=== PATIENT | female | born 1965 | race African-American/Black ===

== ENCOUNTER 2017-08-21 13:12 | Inpatient (IN) ==
--- NOTE | 2017-08-21 13:32 | Emergency Department Report ---
Lower Extremity Injury HPI - General Chief Complaint: Extremity Injury, Lower Stated Complaint: Fall Time Seen by Provider: 08/21/17 13:32 Source: patient Mode of arrival: wheelchair Limitations: no limitations - History of Present Illness HPI Narrative: Patient is a 52-year-old female, presents to the emergency room for evaluation of knee pain. Patient lived in [place] up until yesterday, was moved by family into the [facility]. Patient is wheelchair-bound, was moving from wheelchair to couch, slipped landing on knee. This happened yesterday. Patient having significant knee pain, EMS was called patient was brought to the ER for evaluation. MD complaint: knee injury Injury: Right: knee Type of Injury: blunt Place: home Context: fall - Related Data Home Medications Medication Instructions Recorded Confirmed Ammonium Lactate [Lac-Hydrin Five] 113 gm TP DAILY 08/21/17 08/21/17 Ascorbic Acid [Vitamin C] 1,000 mg PO DAILY 08/21/17 08/21/17 Aspirin [Aspirin EC] 81 mg PO DAILY 08/21/17 08/21/17 Atorvastatin [Lipitor] 0.5 tab PO HS 08/21/17 08/21/17 Brimonidine/Timolol Eye Drops 1 drop EACH EYE Q12HR 08/21/17 08/21/17 [Combigan Eye Drops] Brinzolamide Eye Drops [Azopt] 1 drop BID 08/21/17 08/21/17 Cholecalciferol (Vitamin D3) 2 cap PO DAILY 08/21/17 08/21/17 [Vitamin D3] Dimethicone/Zinc Oxide [Bryanna See Protocol TID 08/21/17 08/21/17 Protect Cream] Famciclovir 250 mg PO Q12HR 08/21/17 08/21/17 Famotidine [Pepcid] 1 tab PO BID 08/21/17 08/21/17 Folic Acid [Folate] 1 tab PO DAILY 08/21/17 08/21/17 Gabapentin [Neurontin] 100 mg PO DAILY 08/21/17 08/21/17 Insulin Aspart [Novolog Flexpen] See Protocol SQ TID 08/21/17 08/21/17 Insulin Glargine,Hum.rec.anlog 16 unit SQ QAM 08/21/17 08/21/17 [Lantus Solostar] Levothyroxine Sodium 25 mcg PO DAILY 08/21/17 08/21/17 Metoprolol Succinate (XL) [Toprol 12.5 mg PO BID 08/21/17 08/21/17 Xl] Polyethylene Glycol [Polyox 17 gm PO BID 08/21/17 08/21/17 Wsr-301] Voriconazole [Vfend] 250 mg PO Q12HR 08/21/17 08/21/17 prednisoLONE acetate [Pred Forte] 1 ml OP DAILY 08/21/17 08/21/17 Allergies Allergy/AdvReac Type Severity Reaction Status Date / Time acetaminophen [From Percocet] Allergy Verified 08/21/17 13:35 Fish Containing Products Allergy Verified 08/21/17 13:35 hydrocodone [From Vicodin] Allergy Verified 08/21/17 13:35 metformin Allergy Verified 08/21/17 13:36 morphine Allergy Verified 08/21/17 13:35 nut - unspecified Allergy Verified 08/21/17 13:35 oxycodone [From Percocet] Allergy Verified 08/21/17 13:35 shellfish derived Allergy Verified 08/21/17 13:35 Review of Systems Constitutional: Denies: fever, chills, weakness ENT: Denies: throat pain Cardiovascular: Denies: chest pain, palpitations Respiratory: Denies: cough, dyspnea, wheezes Gastrointestinal: Denies: abdominal pain, nausea, vomiting Genitourinary: Denies: urgency, dysuria, frequency Musculoskeletal: Reports: as per HPI Neurological: Denies: headache, weakness Psychiatric: Denies: anxiety Endocrine: Denies: fatigue Hematological/Lymphatic: Denies: easy bleeding PFSH Patient Stated Medical History Transient Ischemic Attacks ( Yes: x3 TIA) Cataracts Yes: bilateral eyes Hypertension Yes Other Respiratory Yes: Pt unable to state problem Other GI Yes: chronic constipation Hx Incontinence Yes Depression Yes Other Reproductive Yes: no menstural cycle after chemo - Social History Substance use type: does not use Alcohol intake frequency: does not drink Physical Exam - General General appearance: alert, in no apparent distress - ENT ENT exam: Present: normal oropharynx, mucous membranes moist, TM's normal bilaterally - Respiratory Respiratory exam: Present: normal lung sounds bilaterally - Cardiovascular Cardiovascular exam: Present: normal rhythm, normal heart sounds - Abdominal Exam Abdominal exam: Present: soft, normal bowel sounds. Absent: distention, tenderness - Expanded Lower Extremity Exam right Hip/Pelvis exam: Present: full ROM, tenderness. Absent: swelling, ecchymosis, deformity, crepitus Upper leg exam: Absent: swelling Knee exam: Present: tenderness, knee extension intact. Absent: swelling, abrasion, laceration, ecchymosis, deformity, crepitus, dislocation, pain with valgus, laxity with valgus, pain with varus, laxity with varus Lower leg exam: Present: full ROM. Absent: tenderness Ankle exam: Present: full ROM. Absent: tenderness Neurovascular/Tendon exam: Present: normal capillary refill. Absent: pulse deficit, motor deficit, sensory deficit - Skin Skin exam: Present: warm, dry - Neurological Exam Neurological exam: Present: alert, oriented X3 - Psychiatric Psychiatric exam: Present: normal affect, normal mood Course Vital Signs Temperature 97.5 F 08/21/17 13:20 Pulse Rate 114 H 08/21/17 13:20 Respiratory Rate 16 08/21/17 13:20 Blood Pressure 113/78 08/21/17 13:20 Pulse Oximetry 99 08/21/17 13:20 Temperature 97.5 F 08/21/17 13:20 Pulse Rate 99 08/21/17 14:47 Respiratory Rate 16 08/21/17 14:47 Blood Pressure 115/76 08/21/17 14:47 Pulse Oximetry 99 08/21/17 14:47 Extremity Injury, Lower - MDM Narrative Medical decision making narrative: Atrial fibrillation with no acute fractures or dislocations of the femur or the knee. Family states that they moved her here, however unable to take care of the patient at her house they're requesting placement in a facility. - Differential Diagnosis Likely: acute internal derangement of knee - Radiology Data Attestation: I reviewed the patient's radiology results. Right knee: No acute fractures or dislocations noted Right femur: No acute fractures or dislocations noted Disposition Prescriptions: No Action Brinzolamide Eye Drops [Azopt] 1 drop BID Atorvastatin [Lipitor] 0.5 tab PO HS Aspirin [Aspirin EC] 81 mg PO DAILY Ammonium Lactate [Lac-Hydrin Five] 113 gm TP DAILY Brimonidine/Timolol Eye Drops [Combigan Eye Drops] 1 drop EACH EYE Q12HR Cholecalciferol (Vitamin D3) [Vitamin D3] 2 cap PO DAILY prednisoLONE acetate [Pred Forte] 1 ml OP DAILY Ascorbic Acid [Vitamin C] 1,000 mg PO DAILY Insulin Glargine,Hum.rec.anlog [Lantus Solostar] 16 unit SQ QAM Polyethylene Glycol [Polyox Wsr-301] 17 gm PO BID Metoprolol Succinate (XL) [Toprol Xl] 12.5 mg PO BID Levothyroxine Sodium 25 mcg PO DAILY Gabapentin [Neurontin] 100 mg PO DAILY Folic Acid [Folate] 1 tab PO DAILY Famotidine [Pepcid] 1 tab PO BID Voriconazole [Vfend] 250 mg PO Q12HR Dimethicone/Zinc Oxide [Bryanna Protect Cream] See Protocol TID Insulin Aspart [Novolog Flexpen] See Protocol SQ TID Famciclovir 250 mg PO Q12HR
[2017-08-21] MEDS ORDERED: IBUPROFEN 600 MG TABLET PO ONE (13:38)
--- NOTE | 2017-08-21 14:27 | XRay Report ---
EXAM: XR knee RT 3V COMPARISON: None available. HISTORY: fall right knee pain . FINDINGS: There is no evidence for acute fracture, subluxation, or dislocation. A significant joint effusion is not appreciated. The articulating surfaces are smooth. There is mild medial compartment narrowing. Some sclerosis of the medial and lateral femoral condyle and tibial plateau is noted which may be related to osteoporosis. Osteonecrosis is also also a consideration but seems less likely. IMPRESSION: No evidence for acute fracture identified. LOCATION OF DICTATION: [facility] [place] .
--- NOTE | 2017-08-21 14:28 | XRay Report ---
EXAM: XR femur RT 2V COMPARISON: None available. HISTORY: fall, right femur pain . FINDINGS: There is no evidence for acute fracture, subluxation, or dislocation. There is mild axial migration of the right hip with joint space narrowing and mild subchondral sclerosis and spur formation. The distal femur is intact. The distal femur is intact. There is mild medial compartment narrowing of the knee. IMPRESSION: Mild degenerative changes without evidence for fracture identified. [place] [facility] [place]
--- NOTE | 2017-08-21 18:15 | IRU History & Physical Report ---
HPI IRU Date: Date: 08/21/17 Time: 1810 Chief complaint: I fell HPI: Ms. Isaac is a pleasant 52-year-old female referred by Dr. Arias Echeverria, Emergency Department at [facility]. The patient does not currently have a primary care physician. History was obtained predominantly from the patient directly and also from her cousin. The patient had lived in [place]. She underwent a colonoscopy in April 2016 demonstrating some polyps. Apparently no malignancy was found. Shortly thereafter she was moved to [facility] to a detention. I asked her what the detention was intended for and she says it was primarily for people who were bedfast or had other illnesses. It is not clear the nature of the detention nor why she was placed there. She recently was moved to [place], [place] to live with her cousin Rusty. He is present in the emergency room and I did visit with him as well. Yesterday she was being transferred from wheelchair to a couch and unfortunately fell reportedly landing on her right knee. She did develop hip and knee pain. Today EMS was called due to the pain and she was brought to the emergency department. Radiographs were done of the right hip and knee in the emergency department and these were negative. At the present time she is not able to be cared for in her cousin's home. She is not a candidate for skilled care at this time. She reports she has fallen several times and does have significant debility. The patient does have diabetes mellitus. She checks her blood sugars 4 times daily. They typically are around 400-500 she states. She reports her A1c has dropped from 13 down to 7. She is on a sliding insulin scale insulin and has been followed by an deicer repairer electric in [facility]. The patient also carries a diagnosis of either non-Hodgkin's or Hodgkin's lymphoma. This was diagnosed from a lymph node biopsy in her left supraclavicular fossa about 3-5 years ago. She reports that she was treated with chemotherapy and with radiation therapy. She does not believe there has been a recurrence. The patient is also on voriconazole for some type of pulmonary infection. She was seen by somebody from [facility] in [facility] (Fabiano Burnham MD at [facility] in [place], [place]). She does not know how long she has been on this and is not certain how long she needs to stay on it. I mentioned the word histoplasmosis or aspergillosis and she was not familiar with either of these terms. She reports that her primary care physician is Rehana Villatoro MD in [place], [place]. The patient has significant vision problems. 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 She has had several procedures on the left eye including a cornea transplant. She has also had laser procedures on one or both eyes. She also has glaucoma. She has reduced vision in both eyes with the right eye being the better eye at the present time. The patient also reports a history of "3 strokes." This has affected her speech and she does display significant expressive dysphasia. She says that she knows what she wants to say but is unable to get it out. She denies difficulty swallowing. She does report chronic constipation. Prior level of functioning is as follows: She was modified independent for eating and grooming, required minimum assistance for bathing, upper and lower body dressing, toileting, bed/chair/wheelchair transfers and toilet transfers. Required supervision for walking with a rolling walker. Current level of functioning is as follows: She is supervision level for eating , minimum assistance is required for grooming. She requires moderate assistance for toileting, maximal assistance for bed/chair/wheelchair transfers and total assistance for walking. Is able to walk only about 3 feet with a rolling walker. The following medical conditions are noted and require active monitoring and/or management: 1. Generalized debilitation from immobility and multiple medical problems 2. Diabetes mellitus on long-term insulin therapy, not controlled 3. Hypertension 4. Presumed pulmonary fungal infection, on voriconazole 5. History of non-Hodgkin's lymphoma (versus Hodgkin's lymphoma) uncertain if in remission. Previously treated with chemotherapy and radiation therapy. 6. Expressive dysphasia from prior strokes 7. Severe peripheral diabetic neuropathy 8. Glaucoma and markedly reduced vision The following therapies will be needed: 1. Physical therapy: for transfers and ambulation and stairs. 2. Occupational therapy: for ADL's and transfers. 3. Speech therapy: for expressive dysphasia from prior strokes 3. Medical management: for the above conditions. 4. 24 hour Rehabilitation Nursing to monitor and address the following: Close monitoring of blood sugars, blood pressure and pulmonary status 5. Dietitian: in view of her diabetes mellitus and numerous food intolerances [facility] 1. Diabetes mellitus, on long-term insulin therapy, not controlled 2. Benign essential hypertension 3. Lymphoma, either Hodgkin's or non-Hodgkin's 4. Glaucoma 5. History of CVA 3 with resultant expressive dysphasia 6. Severe polyneuropathy 7. Chronic constipation 8. Hypothyroidism Surgical History: 1. T7-8 fusion. 2. Left arm biopsy left supraclavicular fossa. 3. Multiple procedures on both eyes. Has had cornea transplant on the left as well as retinal procedures I believe on both eyes. 4. Cataract removal bilaterally Family History: Patient's parents are both . Father from emphysema. Mother from heart disease. Uncertain age. - Social History Smoking status: Never smoker Substance use type: does not use Alcohol intake: never Alcohol intake frequency: does not drink Housing: house Household members: family (currently living with cousin and other relatives) Current occupational status: retired Current residence: Apartment/Private Home Social history: Patient states that she has never been . She describes herself as disabled. She formerly worked in childcare. Reason for disability is not clear. She said it is due to some type of skin problem but does not know the name of it. Her cousin Rusty indicates that the skin problem was eczema. However she also has other medical issues including severe chronic peripheral polyneuropathy related to her diabetes presumably. Review of Systems - Constitutional Constitutional: Present: weight loss (reports that she has lost from 253 pounds done 167 pounds over the last 2 years by changing her dietary intake.). Absent : anorexia, chills, fatigue, fever(s), headache(s), lethargy, malaise, night sweats, weakness, weight gain - EENMT Eyes: Present: blurry vision, loss of vision. Absent: change in vision, diplopia Mouth/Throat: Absent: changes in swallowing, painful swallowing, change in taste , bleeding gums, change in voice - Cardiovascular Cardiovascular: Absent: chest pain, palpitations, syncope, dyspnea on exertion, orthopnea, edema, cyanosis, heart murmur Rhythm: Present: regular rhythm Vascular: Absent: intermittent claudication, pedal edema, unilateral swelling - Respiratory Respiratory: Absent: cough, dyspnea, hemoptysis, dyspnea on exertion, wheezing, pain on inspiration, chest congestion, excessive phlegm production - Gastrointestinal Gastrointestinal: Present: constipation, nausea (reports nausea when her blood sugars are either too high or too low.). Absent: abdominal pain, change in bowel habits, diarrhea, dyspepsia, dysphagia, early satiety, hematochezia, melena, vomiting - Genitourinary Genitourinary: Present: urinary incontinence - Musculoskeletal Musculoskeletal: Present: arthralgias, back pain. Absent: abnormal gait, joint swelling, limited range of motion, muscle weakness - Integumentary/Breasts Integumentary: Present: other (reports some type of skin disorder but unclear what.). Absent: alopecia, erythema, lesions, pruritus, rash, jaundice - Neurological Neurological: Present: frequent falls, weakness. Absent: abnormal gait, abnormal movements, abnormal speech, confusion, convulsions, dizziness, focal weakness, headache(s), loss of vision, memory loss, numbness, paresthesias, tremor(s) Neurological Comments: Displays expressive dysphasia - Psychiatric Psychiatric: Absent: abnormal sleep pattern, anxiety, depression - Endocrine Endocrine: Absent: cold intolerance, flushing, heat intolerance, palpitations - Hematologic/Lymphatic Hematologic/Lymphatic: Absent: easy bleeding, easy bruising, lymphadenopathy - Allergic/Immunologic Allergic/Immunologic: Absent: urticaria Medications Home Medications Medication Instructions Recorded Confirmed Type Ammonium Lactate [Lac-Hydrin Five] 113 gm TP DAILY 08/21/17 08/21/17 History Ascorbic Acid [Vitamin C] 1,000 mg PO DAILY 08/21/17 08/21/17 History Aspirin [Aspirin EC] 81 mg PO DAILY 08/21/17 08/21/17 History Atorvastatin [Lipitor] 0.5 tab PO HS 08/21/17 08/21/17 History Brimonidine/Timolol Eye Drops 1 drop EACH EYE Q12HR 08/21/17 08/21/17 History [Combigan Eye Drops] Brinzolamide Eye Drops [Azopt] 1 drop BID 08/21/17 08/21/17 History Cholecalciferol (Vitamin D3) 2 cap PO DAILY 08/21/17 08/21/17 History [Vitamin D3] Dimethicone/Zinc Oxide [Bryanna See Protocol TID 08/21/17 08/21/17 History Protect Cream] Famciclovir 250 mg PO Q12HR 08/21/17 08/21/17 History Famotidine [Pepcid] 1 tab PO BID 08/21/17 08/21/17 History Folic Acid [Folate] 1 tab PO DAILY 08/21/17 08/21/17 History Gabapentin [Neurontin] 100 mg PO DAILY 08/21/17 08/21/17 History Insulin Aspart [Novolog Flexpen] See Protocol SQ TID 08/21/17 08/21/17 History Insulin Glargine,Hum.rec.anlog 16 unit SQ QAM 08/21/17 08/21/17 History [Lantus Solostar] Levothyroxine Sodium 25 mcg PO DAILY 08/21/17 08/21/17 History Metoprolol Succinate (XL) [Toprol 12.5 mg PO BID 08/21/17 08/21/17 History Xl] Polyethylene Glycol [Polyox 17 gm PO BID 08/21/17 08/21/17 History Wsr-301] Voriconazole [Vfend] 250 mg PO Q12HR 08/21/17 08/21/17 History prednisoLONE acetate [Pred Forte] 1 ml OP DAILY 08/21/17 08/21/17 History Allergies Allergy/AdvReac Type Severity Reaction Status Date / Time acetaminophen [From Percocet] Allergy Verified 08/21/17 13:35 Fish Containing Products Allergy Verified 08/21/17 13:35 hydrocodone [From Vicodin] Allergy Verified 08/21/17 13:35 metformin Allergy Verified 08/21/17 13:36 morphine Allergy Verified 08/21/17 13:35 nut - unspecified Allergy Verified 08/21/17 13:35 oxycodone [From Percocet] Allergy Verified 08/21/17 13:35 shellfish derived Allergy Verified 08/21/17 13:35 Exam Vital Signs: Temperature 97.5 F 08/21/17 13:20 Pulse Rate 98 08/21/17 16:41 Respiratory Rate 16 08/21/17 16:41 Blood Pressure 115/73 08/21/17 16:41 Pulse Oximetry 99 08/21/17 16:41 - Constitutional Present: no acute distress, well nourished, well developed, average body habitus , cooperative Comments: Hard of hearing, pleasant, expressive dysphasia - Routine HEENT Exam Head: Present: normocephalic, atraumatic. Absent: cushingoid faces, abrasion, laceration, hematoma Eye: Absent: conjunctival icterus, scleral injection, periorbital swelling, nystagmus ENT: Present: mucous membranes moist, oropharynx clear. Absent: dentition normal (several missing teeth on mandible) Comments: Left cornea appears to be very clouded. Both pupils are tiny and not particularly reactive to light. However she is on medications for glaucoma. - Routine Neck Exam Present: supple, full ROM, trachea midline. Absent: lymphadenopathy, thyromegaly, tenderness, swelling - Routine Chest/Breast/Axilla Exam Chest wall: Absent: tenderness, mass Axillae: Absent: lymphadenopathy, mass - Routine Respiratory Exam Present: CTA bilaterally. Absent: accessory muscle use, decreased breath sounds , prolonged expiratory phase, rales, respiratory distress, rhonchi, stridor, wheezes, crackles, distant breath sounds - Routine Cardiovascular Exam Present: RRR, S1, S2, murmur (systolic murmur, nearly holosystolic, left sternal border.). Absent: gallop, S3, S4, click, irregular rhythm - Routine Abdominal Exam Present: soft, normoactive bowel sounds, non distended, non tender. Absent: rebound, guarding, firm, rigid, organomegaly, mass, hernia, wound - Routine Extremities Exam Present: no edema, non tender, pulses intact, normal capillary refill. Absent: cyanosis, clubbing Comments: I examined both feet barefoot. Pulses are good. No ulcers or lesions are seen. No edema is present. - Routine Back/Spine/Pelvis Exam Back/Spine: Present: full ROM. Absent: scoliosis, kyphosis - Routine Skin Exam Present: intact, dry, warm. Absent: cyanosis, erythema, pallor, mottling, petechiae, urticaria, lesions, jaundice - Routine Neurological Exam Present: alert, oriented X3, CN II-XII intact, sensory deficit (has marked reduced sensation in lower extremities from knees on down bilaterally.), moving all extremities. Absent: normal speech (has expressive dysphasia.) - Routine Psychiatric Exam Present: normal affect, normal thought process, cooperative, good insight, good judgment. Absent: depressed, anxious Sepsis Assessment - Evaluation Severe Sepsis: none seen IRU A/P (1) Debility Current visit: Yes Status: Acute Patient has history of frequent falls. She fell yesterday. She has pain in the knee and hip although radiographs are negative. She has significant debility and would benefit from a multi disciplinary approach. (2) Diabetes mellitus type 1 with manifestations, uncontrolled Current visit: Yes Status: Chronic (3) Hypertension Qualifiers: Hypertension type: essential hypertension Qualified Code(s): I10 - Essential (primary) hypertension Current visit: Yes Status: Chronic (4) Polyneuropathy Current visit: Yes Status: Chronic (5) Glaucoma Qualifiers: Glaucoma type: unspecified Laterality: bilateral Qualified Code(s): H40.9 - Unspecified glaucoma Current visit: Yes Status: Chronic DVT Prophylaxis: SCD's Resuscitation Status: Full Code - Course Hospital Course: Venkatesh Lopez MD: - Interventions to Obtain Goals PT Treatment Plan: Balance/Proprioception, Functional Activities, Gait Training , Patient/Family Education, Therapeutic Exercise, N/A OT Treatment Plan: ADL (Basic Care), Balance Training, Coginitive Skills Development, IADL, Pt./Family Education, N/A Goals Progress/Modifications: This patient has significant debilitation. She requires a multidisciplinary approach to her recovery. She has multiple medical issues as well including diabetes mellitus type 1 on long-term insulin, poorly controlled, diabetic polyneuropathy and hypertension. She likely has a fungal lung infection as well.
--- NOTE | 2017-08-21 18:25 | IRU 24Hr Post Admit Eval ---
24 Hr Post Admission Physical - Relevant Changes Relevant Changes: No Reviewed: I have reviewed the patient's information and concur with the finding and results of the pre-admission screen. Certification: I certify the patient for rehabilitation. - Patient Condition (1) Debility Status: Acute Code(s): R53.81 - Other malaise Classification: Present on IRF Admission, IRF Tx That Should Address Diagnosis, Diagnosis Requiring Medical Follow Up (2) Diabetes mellitus type 1 with manifestations, uncontrolled Status: Chronic Code(s): E10.8 - Type 1 diabetes mellitus with unspecified complications; E10.65 - Type 1 diabetes mellitus with hyperglycemia Classification: Present on IRF Admission, IRF Tx That Should Address Diagnosis, Diagnosis Requiring Medical Follow Up (3) Hypertension Status: Chronic Qualifiers: Hypertension type: essential hypertension Qualified Code(s): I10 - Essential (primary) hypertension Code(s): I10 - Essential (primary) hypertension Classification: Present on IRF Admission, IRF Tx That Should Address Diagnosis, Diagnosis Requiring Medical Follow Up (4) Polyneuropathy Status: Chronic Code(s): G62.9 - Polyneuropathy, unspecified Classification: Present on IRF Admission, IRF Tx That Should Address Diagnosis, Diagnosis Requiring Medical Follow Up (5) Glaucoma Status: Chronic Qualifiers: Glaucoma type: unspecified Laterality: bilateral Qualified Code(s): H40.9 - Unspecified glaucoma Code(s): H40.9 - Unspecified glaucoma Classification: Present on IRF Admission, IRF Tx That Should Address Diagnosis, Diagnosis Requiring Medical Follow Up - Prior Functional Status Lives With: With Family Residence Type: Apartment/Private Home Assitive Devices: None Prior Functional Status: Depend. at home or school, Depend. w/ IADL - Current Functional Status Current Level of Function: Current level of functioning is as follows: She is supervision level for eating , minimum assistance is required for grooming. She requires moderate assistance for toileting, maximal assistance for bed/chair/wheelchair transfers and total assistance for walking. Is able to walk only about 3 feet with a rolling walker. Failed Alternative Therapy: Yes Patient Requirements: The patient requires oversight by rehabilitation physician to manage their rehabilitation treatment plan and multidisciplinary approach to care that can only be provided in an IRF and requires a multidisciplinary approach to care, provided by professional PTs, OTs, STs, dieticians, RTs, rehabilitation nurses and is not available in lesser levels of care. Limitations Req: Mobility Impairment, ADL Impairment, Limited Mobility Therapy: The patient is to receive therapy at least 5 days a week. Plan of Care Comment: Physical therapy: 75 minutes 3 days weekly, 90 minutes 2 days weekly. Occupational therapy: 75 minutes 3 days weekly, 90 minutes 2 days weekly. Speech therapy: 30 minutes 3 days weekly - Complications/Comorbidities Impact on Functional Outcomes: Patient's peripheral neuropathy and diabetes as well as expressive dysphasia may have a negative impact on her functional outcome. Barriers to Discharge: Weakness, Endurance, Comprehension, Medical Limitation - Plan to Avoid Complications Plan to Avoid Complications: The patient cannot receive this care in a lesser intensive setting such as Long Term or Outpatient Therapy due to the patient requiring the following : She requires close monitoring of her blood sugars, blood pressures and neurologic status as well as 24-hour rehabilitation nursing to reduce fall risk. She requires a multidisciplinary approach with PT, OT and speech therapy with medical supervision.
[2017-08-21 18:39] VITALS: BMI 25.4
[2017-08-21] MEDS: INSULIN ASPART 100unit/ml INJECTION SQ SCH (19:20)
[2017-08-21] MEDS ORDERED: BRIMONIDINE/TIMOLOL 0.2%-0.5% EYE DROPS 5ml EACH EYE SCH (21:00)
[2017-08-21] MEDS ORDERED: ATORVASTATIN 20 MG TABLET PO SCH (21:00)
[2017-08-21] MEDS ORDERED: POLYETHYLENE GLYCOL 17 GM PO SCH (21:00)
[2017-08-21] MEDS ORDERED: FAMCICLOVIR 250 MG PO SCH (21:00)
[2017-08-21] MEDS: BRINZOLAMIDE 1% RIGHT EYE SCH (23:10)
[2017-08-21] MEDS: EYE RIGHT EYE SCH (23:10)
[2017-08-21] MEDS: FAMOTIDINE 20 MG TABLET PO SCH (23:11)
[2017-08-22] MEDS: FAMCICLOVIR 500 MG TABLET PO SCH ×3 (01:39→20:04)
[2017-08-22] MEDS: ACETAMINOPHEN 500 MG TABLET PO SCH ×4 (03:57→20:05)
[2017-08-22] MEDS: LEVOTHYROXINE 25 MCG TABLET PO SCH (07:23)
[2017-08-22] MEDS: FOLIC ACID 1 MG TABLET PO SCH (08:42)
[2017-08-22] MEDS: GABAPENTIN 100 MG CAPSULE PO SCH (08:42)
[2017-08-22] MEDS ORDERED: CHOLECALCIFEROL PO SCH (09:00)
[2017-08-22] MEDS ORDERED: ASCORBIC ACID 500 MG TABLET PO SCH (09:00)
[2017-08-22] MEDS ORDERED: LEVOTHYROXINE 25 MCG TABLET PO SCH (09:00)
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
[2017-08-22] MEDS: ASPIRIN *EC* 81 MG TABLET PO SCH (09:49)
[2017-08-22] MEDS: FAMOTIDINE 20 MG TABLET PO SCH (09:49)
[2017-08-22] MEDS: POLYETHYL GLYCOL 3350 17gm PACKET PO SCH ×2 (09:50→20:14)
[2017-08-22] MEDS: PrednisoLONE 1% EYE DROPS 5ml OP SCH (09:51)
[2017-08-22] MEDS: BRINZOLAMIDE 1% RIGHT EYE SCH ×2 (09:51→20:03)
[2017-08-22] MEDS: EYE RIGHT EYE SCH ×2 (09:51→20:03)
[2017-08-22] MEDS: INSULIN ASPART 100unit/ml INJECTION SQ SCH ×3 (09:58→17:42)
[2017-08-22] MEDS: VORICONAZOLE 50 MG PO SCH ×3 (10:22→20:11)
[2017-08-22] MEDS ORDERED: EUCERIN CREAM 57gm TP PRN (10:46)
--- NOTE | 2017-08-22 11:02 | IRU Progress Note ---
- Subjective/Serverity of Illness Date: 08/22/17 Maíra was interviewed and examined in her room on inpatient rehabilitation. She came in late last night and I saw her yesterday. She denies any particular chest pain or shortness of breath. She denies any nausea or vomiting. She is quite loquacious today. Has several concerns about her medications basically her eyedrops. These are reviewed with her. She would like to keep these at the bedside which is fine. She states that she has very dry skin and would like some Eucerin cream for that. That has been ordered by the hospitalists. She denies any new symptoms at the present time. Pain is an issue with regard to the hip and the knee. She reportedly has numerous sensitivities to narcotics. We will try to stick with acetaminophen for the time being. She says that she can take that safely and without difficulty. From a therapy standpoint, she is just getting started. She told speech therapy that she would like to talk to psychiatrist about her "thoughts." Uncertain what this is about but we will ask psychiatry to see her. We will obtain records from [facility]. Brief update on medical issues were actively monitoring and managing as follows: 1. Generalized debilitation from immobility and multiple medical problems: She is being assessed by physical therapy and occupational therapy today. She states she is not clear why she no longer is able to walk. She does not think she has had therapy for some time. 2. Diabetes mellitus on long-term insulin therapy, not controlled: Blood sugars are reviewed. Occasional values over 200. A1c looks good at 6.7%. 3. Hypertension: Some values are over 140 but others are in the 120 range. 4. Presumed pulmonary fungal infection, on voriconazole: This as you to be clarified. She will continue the voriconazole for the time being. Denies any cough at present. Denies any sputum. 5. History of non-Hodgkin's lymphoma (versus Hodgkin's lymphoma) uncertain if in remission: Patient states that she is concerned about this. She had told me this was diagnosed in around 2011 but told the hospitalist this was back in 2005. We will try to obtain outside records in this regard. 6. Expressive dysphasia from prior strokes: She complained to me of this last night. She has been seen by speech therapy this morning. Speech therapy is not certain she has significant expressive aphasia at present. However she is concerned about cognition. 7. Severe peripheral diabetic neuropathy: She is okay getting by on one gabapentin daily. 8. Glaucoma and markedly reduced vision Exam Vital Signs: Temperature 97.8 F 08/22/17 08:00 Pulse Rate 88 08/22/17 08:00 Respiratory Rate 16 08/22/17 08:00 Blood Pressure 129/81 08/22/17 08:00 Pulse Oximetry 90 08/22/17 08:00 Height/Weight/BMI: Height 1.73 m Weight 75.9 kg Body Mass Index 25.4 - Constitutional Present: no acute distress, well nourished, well developed, cooperative Comments: loquacious - Routine HEENT Exam Head: Present: normocephalic, atraumatic Eye: Absent: PERRL ENT: Present: mucous membranes moist, oropharynx clear. Absent: dentition normal Comments: Left eye continues to demonstrate significant scarring or clouding. - Routine Neck Exam Present: supple, full ROM - Routine Respiratory Exam Present: CTA bilaterally. Absent: respiratory distress, rhonchi, wheezes, crackles - Routine Cardiovascular Exam Present: RRR, S1, S2, murmur (left sternal border grade 2/6). Absent: S3, S4 - Routine Abdominal Exam Present: soft, normoactive bowel sounds, non distended. Absent: tenderness - Routine Extremities Exam Present: no edema, pulses intact. Absent: cyanosis, clubbing - Routine Skin Exam Present: dry, warm Comments: I wondered about the possibility of scleroderma. She says that she has never been told that she has this. Skin is quite dry and her cousin Rusty indicates she has had a diagnosis of eczema in the past. She believes this is why she is "disabled" from a medical standpoint. - Routine Neurological Exam Present: alert, oriented X3, CN II-XII intact, motor deficit (bilateral lower extremity weakness.). Absent: vision grossly intact, hearing grossly intact - Routine Psychiatric Exam Present: normal affect, cooperative, anxious Results IRU - Labs Labs: I reviewed laboratory studies and other providers notes. IRU A/P (1) Debility Current visit: Yes Status: Acute Patient has just started with therapy. She is cooperative. She is wanting to walk again she states. Does have discomfort in the hip and knee. (2) Diabetes mellitus type 1 with manifestations, uncontrolled Current visit: Yes Status: Chronic Blood sugars are reasonably controlled at the present time. A1c is 6.7%. We have continued her previous sliding scale. (3) Hypertension Qualifiers: Hypertension type: essential hypertension Qualified Code(s): I10 - Essential (primary) hypertension Current visit: Yes Status: Chronic Blood pressure remains variable with some values over 140 and many in the 120s. (4) Polyneuropathy Current visit: Yes Status: Chronic (5) Glaucoma Qualifiers: Glaucoma type: unspecified Laterality: bilateral Qualified Code(s): H40.9 - Unspecified glaucoma Current visit: Yes Status: Chronic DVT Prophylaxis: SCD's Resuscitation Status: Full Code - Course Hospital Course: Venkatesh Lopez MD: 08/22/17 11:05 Patient is settling into rehabilitation. Just getting assessed by PT, OT and speech therapy. Patient would like to talk to her psychiatrist about her "thoughts." - Interventions to Obtain Goals PT Treatment Plan: Balance/Proprioception, Functional Activities, Gait Training , Patient/Family Education, Therapeutic Exercise, N/A OT Treatment Plan: ADL (Basic Care), Balance Training, Pt./Family Education, Ther. Exercise for ADL Goals Progress/Modifications: Time spent with patient and on floor reviewing data and documentin min Medical decision-making: The patient is quite medically complex. She may have cognition issues as well. She does have some anemia and the hospitalist service is working that up. She would like to see a psychiatrist about her "thoughts." We will involve them. It is a bit unclear why she discontinued ambulation. I do have hope that with therapy she will be able to improve and be more independent. Her blood sugars are reviewed. She is on a sliding scale. It is unclear exactly what the diagnosis is for her voriconazole. I have requested records be sent from both her infectious disease doctor and her primary care physician. Please note that the patient's individual plan of care was developed and documented today, requiring review of therapy notes, medical conditions and anticipated functional recovery. This required additional medical decision making with regard to interaction of the patient's medical issues with the anticipated functional recovery. Please see separate document.
[2017-08-22] MEDS: INSULIN GLARGINE 100unit/ml INJECTION SQ SCH (11:11)
--- NOTE | 2017-08-22 11:12 | IRU Plan of Care ---
[facility] Overall Plan of Care - Date Date: 08/22/17 - Patient Impairments (1) Debility Code(s): R53.81 - Other malaise Status: Acute Classification: Present on IRF Admission, IRF Tx That Should Address Diagnosis, Diagnosis Requiring Medical Follow Up (2) Diabetes mellitus type 1 with manifestations, uncontrolled Code(s): E10.8 - Type 1 diabetes mellitus with unspecified complications; E10.65 - Type 1 diabetes mellitus with hyperglycemia Status: Chronic Classification: Present on IRF Admission, IRF Tx That Should Address Diagnosis, Diagnosis Requiring Medical Follow Up (3) Glaucoma Qualifiers: Glaucoma type: unspecified Laterality: bilateral Qualified Code(s): H40.9 - Unspecified glaucoma Code(s): H40.9 - Unspecified glaucoma Status: Chronic Classification: Present on IRF Admission, IRF Tx That Should Address Diagnosis, Diagnosis Requiring Medical Follow Up (4) Hypertension Qualifiers: Hypertension type: essential hypertension Qualified Code(s): I10 - Essential (primary) hypertension Code(s): I10 - Essential (primary) hypertension Status: Chronic Classification: Present on IRF Admission, IRF Tx That Should Address Diagnosis, Diagnosis Requiring Medical Follow Up (5) Polyneuropathy Code(s): G62.9 - Polyneuropathy, unspecified Status: Chronic Classification: Present on IRF Admission, IRF Tx That Should Address Diagnosis, Diagnosis Requiring Medical Follow Up - Relevant Changes Relevant Changes: No Reviewed: I have reviewed the patient's information and concur with the finding and results of the pre-admission screen. Certification: I certify the patient for rehabilitation. - Medical Prognosis Medical Prognosis: Good Vital Signs: Last Vital Signs Temp 97.8 F 08/22/17 08:00 Pulse 88 08/22/17 08:00 Resp 16 08/22/17 08:00 BP 129/81 08/22/17 08:00 Pulse Ox 90 08/22/17 08:00 - Anticipated Interventions Anticipated Interventions: The patient requires inpatient IRF care for PT, OT, and/or ST for residuals remaining from fall and weakness resulting in muscular weakness and strength deficits. An individualized overall plan of care has been developed after careful review of the patient's preadmission screening, post admission physician evaluation and assessments of all therapy disciplines and/or other pertinent clinicians involved in treating the patient. This indicates medical necessity and rehabilitation necessity have been established through a thorough review of all available medical information. Strength Deficits: Right Lower Extremity, Left Lower Extremity - Current Functional Status Failed Alternative Therapy: Yes (patient was not a candidate for acute inpatient care. She was not a candidate for skilled care. She was unable to be cared for at home and thus outpatient treatment was not possible.) Patient Requires: The patient requires oversight by rehabilitation physician to manage their rehabilitation treatment plan and multidisciplinary approach to care that can only be provided in an IRF and requires a multidisciplinary approach to care, provided by professional PTs, OTs, STs, rehabilitation nurses, and may require STs, dieticians, and RTS. This is not available in lesser levels of care. Therapy: The patient is to receive therapy at least 5 days a week. Plan of Care Comment: Physical therapy: 75 minutes 3 days weekly, 90 minutes 2 days weekly. Occupational therapy: 75 minutes 3 days weekly, 90 minutes 2 days weekly. Speech therapy: 30 minutes 3 days weekly. This is subject to change after ST assessment is complete. - Anticipated LOS/Outcomes Anticipated Functional Outcome: It is anticipated the patient will be able to return to her cousin's home and be able to ambulate at modified independent level. She will be able to perform ADLs at modified independent level. Anticipated Length of Stay (days): 14 Anticipated DC Destination: Home, Self Care, Home Health Service Home Safety Plan: The patient will be provided with the development of a Home Safety Plan for return to a home or home-like environment and and to ensure safety post discharge. - Plan to Avoid Complications Barriers to Attaining Goals: Weakness, Balance, Endurance Plan to Avoid Complications: The patient cannot receive this care in a lesser intensive setting such as Intermediate or Outpatient Therapy due to the patient requiring the following : The patient is medically complex and requires close monitoring of her blood sugars, blood pressure, and requires 24 rehabilitation nursing to reduce fall risk. She requires PT, OT and speech therapy and likely has cognition deficits. She requires a multidisciplinary approach in view of her multiple medical problems. This is unable to be provided at a different level of care.
[2017-08-22] MEDS ORDERED: FALL RISK - PHARMACY CONSULT XX ONE (17:37)
[2017-08-22] MEDS: ATORVASTATIN 10 MG TABLET PO SCH (20:02)
[2017-08-22] MEDS: BRIMONIDINE/TIMOLOL 0.2%-0.5% EYE DROPS 5ml RIGHT EYE SCH (20:03)
[2017-08-22] MEDS: ERYTHROMYCIN 0.5% EYE OINTMENT 3.5gm LEFT EYE SCH (20:04)
[2017-08-23] MEDS: LEVOTHYROXINE 25 MCG TABLET PO SCH (06:05)
[2017-08-23] MEDS: INSULIN ASPART 100unit/ml INJECTION SQ SCH ×3 (08:42→17:41)
[2017-08-23] MEDS: FAMCICLOVIR 500 MG TABLET PO SCH ×2 (08:43→20:46)
[2017-08-23] MEDS: ASPIRIN *EC* 81 MG TABLET PO SCH (08:43)
[2017-08-23] MEDS: ACETAMINOPHEN 500 MG TABLET PO SCH ×3 (08:44→20:50)
[2017-08-23] MEDS: GABAPENTIN 100 MG CAPSULE PO SCH (08:44)
[2017-08-23] MEDS: FOLIC ACID 1 MG TABLET PO SCH (08:44)
[2017-08-23] MEDS: ASCORBIC ACID 500 MG TABLET PO SCH (08:47)
[2017-08-23] MEDS: POLYETHYL GLYCOL 3350 17gm PACKET PO SCH ×2 (08:49→20:51)
[2017-08-23] MEDS: INSULIN GLARGINE 100unit/ml INJECTION SQ SCH (08:49)
[2017-08-23] MEDS: VORICONAZOLE 50 MG PO SCH ×2 (08:50→20:51)
[2017-08-23] MEDS: BRIMONIDINE/TIMOLOL 0.2%-0.5% EYE DROPS 5ml RIGHT EYE SCH ×2 (10:49→21:05)
[2017-08-23] MEDS: EYE RIGHT EYE SCH ×2 (10:50→21:02)
[2017-08-23] MEDS: BRINZOLAMIDE 1% RIGHT EYE SCH ×2 (10:50→21:02)
[2017-08-23] MEDS: PrednisoLONE 1% EYE DROPS 5ml OP SCH (10:51)
--- NOTE | 2017-08-23 11:09 | Progress Note ---
Progress Note: Old records received from- [facility] 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 Other documents indicate pt lived with her cousin Rusty?? Followed by PCP- Rehana Contreras APRN Infectious disease- Dr Fabiano Flores- [facility] in [place], [place]- He was following pt for pulmonary Aspergilloma. Last seen in 2016 and recommended Voriconazole chronically followed by Ct chest in 3 months. Labs from 05/11/2017-CBC- WBC- 8, RBC- 3.01, Hgb- 9.7, HCT 28.7, PLT 319. CMP- NA- 132, K- 5.2, BUN- 33, Tongue Binder- 1.1, GFR- 52.
[2017-08-23] MEDS ORDERED: IBUPROFEN 400 MG TABLET PO PRN (16:08)
[2017-08-23] MEDS: TRAMADOL 50 MG TABLET PO PRN (17:42)
[2017-08-23] MEDS: ATORVASTATIN 10 MG TABLET PO SCH (20:47)
[2017-08-23] MEDS: ERYTHROMYCIN 0.5% EYE OINTMENT 3.5gm LEFT EYE SCH (21:00)
[2017-08-24] MEDS: LEVOTHYROXINE 25 MCG TABLET PO SCH (06:42)
[2017-08-24] MEDS: ASPIRIN *EC* 81 MG TABLET PO SCH (08:59)
[2017-08-24] MEDS: ASCORBIC ACID 500 MG TABLET PO SCH (09:00)
[2017-08-24] MEDS: ACETAMINOPHEN 500 MG TABLET PO SCH ×3 (09:00→20:49)
[2017-08-24] MEDS: GABAPENTIN 100 MG CAPSULE PO SCH (09:01)
[2017-08-24] MEDS: INSULIN ASPART 100unit/ml INJECTION SQ SCH ×3 (09:01→17:53)
[2017-08-24] MEDS: POLYETHYL GLYCOL 3350 17gm PACKET PO SCH (09:01)
[2017-08-24] MEDS: FOLIC ACID 1 MG TABLET PO SCH (09:01)
[2017-08-24] MEDS: FAMCICLOVIR 500 MG TABLET PO SCH ×2 (09:01→20:50)
[2017-08-24] MEDS: INSULIN GLARGINE 100unit/ml INJECTION SQ SCH (09:02)
[2017-08-24] MEDS: BRIMONIDINE/TIMOLOL 0.2%-0.5% EYE DROPS 5ml RIGHT EYE SCH ×2 (09:02→20:57)
[2017-08-24] MEDS: EYE RIGHT EYE SCH ×2 (09:03→20:58)
[2017-08-24] MEDS: BRINZOLAMIDE 1% RIGHT EYE SCH ×2 (09:03→20:58)
[2017-08-24] MEDS: PrednisoLONE 1% EYE DROPS 5ml OP SCH (09:03)
[2017-08-24] MEDS: VORICONAZOLE 50 MG PO SCH ×2 (09:04→20:54)
[2017-08-24] MEDS ORDERED: FUROSEMIDE 40 MG TABLET PO ONE (10:30)
--- NOTE | 2017-08-24 10:39 | IRU Progress Note ---
- Subjective/Serverity of Illness Date: 08/24/17 Ms. Isaac was reassessed in her remote inpatient rehabilitation. She had developed a small "blood blister" on the tip of her right great toe. Etiology is unclear. She states she does not recall any trauma. It opened up and the area was cleansed and a Band-Aid is placed. I inspected the lesion and it does not appear to be infected. It is a small area on the tip of her right great toe. She denies any dyspnea. She is concerned about peripheral edema. I have reviewed notes from Janeth Poe APRN regarding outside record review. I appreciate her taking the time to review those. She does have history of chronic peripheral edema as well as history of chronic kidney disease. Patient was on Lasix in the past according to the patient. We will go ahead and give her a single dose of this because of her concerns. She is noted to have elevated globulins. According to outside records she has a history of polyclonal gammopathy so we will not pursue electrophoresis at this time. She is on chronic voriconazole for an aspergilloma diagnosed and managed by infectious disease in [place]. Last seen in about May [address] scan in 3 months. Appetite is reasonable. She would like some triamcinolone cream for an itchy rash which she chronically has. At this time there are small reddish bumps noted on the left antecubital fossa consistent with an atopic dermatitis/eczema. Brief therapy update: For occupational therapy grooming declined a bit from independent to standby assist. Bathing improved from moderate assistance to minimum assistance. Both upper and lower body dressing improved from standby assistance to modified independent. Physical therapy, bed/chair/wheelchair transfers are with moderate assistance. She is able to ambulate about 20 feet with total assistance of 1 person in the parallel bars. For speech therapy, she has not displayed word finding difficulties. Cognition is an issue and they're working with her in this regard. Brief update on medical issues were actively monitoring and managing as follows: 1. Generalized debilitation from immobility and multiple medical problems: She continues to participate with therapy and is cooperative. She is making progress. 2. Diabetes mellitus on long-term insulin therapy, not controlled: Review blood sugars indicates values between 145 and 250. She is on a sliding scale. 3. Hypertension: Review of blood pressures indicates many of them are adequately controlled with occasional elevation noted. 4. Pulmonary aspergilloma: She is on chronic voriconazole with CT chest recommended in about 3 months from diagnosis apparently. 5. History of Hodgkin's lymphoma: Apparently this was in 2016. States that she was treated with chemotherapy and radiation therapy. Uncertain if she is still in remission. 6. Expressive dysphasia from prior strokes: Uncertain if this is a significant issue at present. She is very verbal. 7. Severe peripheral diabetic neuropathy 8. Glaucoma and markedly reduced vision Exam Vital Signs: Temperature 97.4 F 08/24/17 08:00 Pulse Rate 103 H 08/24/17 08:00 Respiratory Rate 20 08/24/17 08:00 Blood Pressure 141/77 H 08/24/17 08:00 Pulse Oximetry 95 08/24/17 08:00 Height/Weight/BMI: Height 1.73 m Weight 75.9 kg Body Mass Index 25.4 - Constitutional Present: no acute distress, well nourished, well developed, cooperative Comments: Continues to be very loquacious. - Routine HEENT Exam Eye: Present: EOMI ENT: Present: mucous membranes dry, oropharynx clear - Routine Neck Exam Present: supple - Routine Respiratory Exam Present: CTA bilaterally. Absent: respiratory distress, rhonchi, wheezes, crackles - Routine Cardiovascular Exam Present: RRR, S1, S2, murmur (murmur predominantly left sternal border grade 2/6 ) - Routine Abdominal Exam Present: soft, normoactive bowel sounds, non distended. Absent: tenderness - Routine Extremities Exam Present: edema (trace edema both lower extremities in the feet mainly. Likely dependent in origin.) Comments: Small, opened "blood blister" tip of right great toe. Noninflamed. And it in place. Clean. - Routine Skin Exam Present: dry, warm, wounds (please see above discussion of right great toe.) - Routine Neurological Exam Present: alert, oriented X3, CN II-XII intact - Routine Psychiatric Exam Present: normal affect, cooperative. Absent: normal thought process, good insight, good judgment Results IRU - Labs Labs: Have reviewed other providers notes and appreciate Janeth's extract of outside records in detail. IRU A/P (1) Debility Current visit: Yes Status: Acute Patient continues to work with therapy and is making some progress. Remains quite debilitated at present. Can only walk in parallel bars at present. (2) Diabetes mellitus type 1 with manifestations, uncontrolled Current visit: Yes Status: Chronic Blood sugars appear to be reasonably well controlled at the present time. Range between 145 and 250. No hypoglycemic spells are noted. (3) Glaucoma Qualifiers: Glaucoma type: unspecified Laterality: bilateral Qualified Code(s): H40.9 - Unspecified glaucoma Current visit: Yes Status: Chronic (4) Hypertension Qualifiers: Hypertension type: essential hypertension Qualified Code(s): I10 - Essential (primary) hypertension Current visit: Yes Status: Chronic (5) Polyneuropathy Current visit: Yes Status: Chronic (6) Dermatitis, eczematoid Qualifiers: Eczema type: unspecified Qualified Code(s): L30.9 - Dermatitis, unspecified Current visit: Yes Status: Chronic She has chronic eczematoid dermatitis with acute exacerbation. She would like some triamcinolone cream which will be provided. DVT Prophylaxis: SCD's Resuscitation Status: Full Code - Course Hospital Course: Venkatesh Lopez MD: 08/22/17 11:05 Patient is settling into rehabilitation. Just getting assessed by PT, OT and speech therapy. Patient would like to talk to her psychiatrist about her "thoughts." 08/24/17 10:42 Making progress with therapy. Eczematoid dermatitis noted on left antecubital fossa. Triamcinolone ordered. Reviewed data from outside records. - Interventions to Obtain Goals PT Treatment Plan: Balance/Proprioception, Functional Activities, Gait Training , Patient/Family Education, Therapeutic Exercise, N/A OT Treatment Plan: ADL (Basic Care), Balance Training, Pt./Family Education, Ther. Exercise for ADL Goals Progress/Modifications: Time spent with patient and on floor reviewing data and documentin min Medical decision-making: This is a very medically complex patient with history of pulmonary aspergilloma on chronic voriconazole therapy, diabetes mellitus with variable control, polyneuropathy, eczematoid dermatitis as well as cognitive deficits. She is cooperative with PT, OT and speech therapy. We will continue working with her. Today we added on triamcinolone cream for the eczematoid dermatitis. I considered doing another protein electrophoresis but looks like she has a history of polyclonal gammopathy. Finally she is concerned about her peripheral edema. We will give her a single dose of Lasix. However I imagine this is most likely dependent in origin as her lungs remain clear and there is no evidence of heart failure at present.
[2017-08-24] MEDS: TRIAMCINOLONE 0.1% CREAM 15 G TUBE TOP PRN (12:22)
[2017-08-24] MEDS: TRAMADOL 50 MG TABLET PO PRN (15:43)
[2017-08-24] MEDS: ATORVASTATIN 10 MG TABLET PO SCH (20:50)
[2017-08-24] MEDS: ERYTHROMYCIN 0.5% EYE OINTMENT 3.5gm LEFT EYE SCH (20:52)
[2017-08-25] MEDS: POLYETHYL GLYCOL 3350 17gm PACKET PO SCH ×3 (05:22→20:54)
[2017-08-25] MEDS: LEVOTHYROXINE 25 MCG TABLET PO SCH (05:31)
[2017-08-25] MEDS: TRAMADOL 50 MG TABLET PO PRN (06:06)
[2017-08-25] MEDS: FOLIC ACID 1 MG TABLET PO SCH (08:55)
[2017-08-25] MEDS: ACETAMINOPHEN 500 MG TABLET PO SCH ×3 (08:55→20:57)
[2017-08-25] MEDS: ASCORBIC ACID 500 MG TABLET PO SCH (08:57)
[2017-08-25] MEDS: GABAPENTIN 100 MG CAPSULE PO SCH (08:57)
[2017-08-25] MEDS: FAMCICLOVIR 500 MG TABLET PO SCH ×2 (08:57→20:52)
[2017-08-25] MEDS: ASPIRIN *EC* 81 MG TABLET PO SCH (08:57)
[2017-08-25] MEDS: INSULIN ASPART 100unit/ml INJECTION SQ SCH ×3 (08:58→17:50)
[2017-08-25] MEDS: EYE RIGHT EYE SCH ×2 (08:59→21:00)
[2017-08-25] MEDS: BRIMONIDINE/TIMOLOL 0.2%-0.5% EYE DROPS 5ml RIGHT EYE SCH ×2 (08:59→21:01)
[2017-08-25] MEDS: BRINZOLAMIDE 1% RIGHT EYE SCH ×2 (08:59→21:00)
[2017-08-25] MEDS: PrednisoLONE 1% EYE DROPS 5ml OP SCH (09:00)
[2017-08-25] MEDS: VORICONAZOLE 50 MG PO SCH ×2 (09:01→20:56)
[2017-08-25] MEDS: AMMONIUM LACTATE PO SCH (09:09)
[2017-08-25] MEDS: INSULIN GLARGINE 100unit/ml INJECTION SQ SCH (09:17)
--- NOTE | 2017-08-25 11:02 | IRU Progress Note ---
- Subjective/Serverity of Illness Date: 08/25/17 Ms. Isaac was evaluated on inpatient rehabilitation. She is making great strides with therapy. This morning she was able to ambulate 63 feet with a front -wheeled walker with maximum assistance/contact-guard assistance. She reports some constipation although apparently did have a bowel movement yesterday. She is also concerned about edema. We did give her a single dose of Lasix. Edema has been a chronic issue. There is no evidence of heart failure and I think this is likely dependent in origin. She does complain of pain in the knees. She would like to have ibuprofen available on an as-needed basis. In the old records there is indication of chronic kidney disease. At the present time her creatinine is stable. I discussed this with her today. Her that she could have ibuprofen from time to time but that we will need to keep an eye on her kidney function. She also has tramadol available but she states this makes her too sleepy. Finally, we did review her blood sugars. Overall there reasonably good with some values are running 150 and others a bit over 200. Exam Vital Signs: Temperature 97.6 F 08/25/17 08:00 Pulse Rate 93 08/25/17 08:00 Respiratory Rate 16 08/25/17 08:00 Blood Pressure 135/79 08/25/17 08:00 Pulse Oximetry 93 08/25/17 08:00 Height/Weight/BMI: Height 1.73 m Weight 75.9 kg Body Mass Index 25.4 - Constitutional Present: no acute distress, well nourished, well developed, cooperative - Routine HEENT Exam Head: Present: normocephalic Eye: Present: EOMI ENT: Present: mucous membranes moist, oropharynx clear - Routine Respiratory Exam Present: CTA bilaterally. Absent: dyspnea, respiratory distress, wheezes, crackles - Routine Cardiovascular Exam Present: RRR, S1, S2 - Routine Abdominal Exam Present: soft, normoactive bowel sounds, non distended. Absent: tenderness - Routine Extremities Exam Present: no edema, normal capillary refill - Routine Skin Exam Present: dry, warm - Routine Neurological Exam Present: alert, oriented X3, CN II-XII intact - Routine Psychiatric Exam Present: normal affect, cooperative, anxious Results IRU - Labs Labs: I have reviewed chart data in detail. IRU A/P (1) Debility Current visit: Yes Status: Acute She is improving significant only with therapy. Was able to walk over 60 feet today. She is cooperative with therapy but still display significant debilitation. (2) Diabetes mellitus type 1 with manifestations, uncontrolled Current visit: Yes Status: Chronic Blood sugars are variable. Overall there reasonably well controlled. Per hospitalist service. (3) Glaucoma Qualifiers: Glaucoma type: unspecified Laterality: bilateral Qualified Code(s): H40.9 - Unspecified glaucoma Current visit: Yes Status: Chronic The patient states that she has the appropriate eyedrops at the present time. (4) Hypertension Qualifiers: Hypertension type: essential hypertension Qualified Code(s): I10 - Essential (primary) hypertension Current visit: Yes Status: Chronic (5) Polyneuropathy Current visit: Yes Status: Chronic (6) Dermatitis, eczematoid Qualifiers: Eczema type: unspecified Qualified Code(s): L30.9 - Dermatitis, unspecified Current visit: Yes Status: Chronic DVT Prophylaxis: SCD's Resuscitation Status: Full Code - Course Hospital Course: Venkatesh Lopez MD: 08/22/17 11:05 Patient is settling into rehabilitation. Just getting assessed by PT, OT and speech therapy. Patient would like to talk to her psychiatrist about her "thoughts." 08/24/17 10:42 Making progress with therapy. Eczematoid dermatitis noted on left antecubital fossa. Triamcinolone ordered. Reviewed data from outside records. 08/25/17 11:03 She is progressing with therapy. Labs are stable. Blood sugars 150-220. No hypoglycemic spells. - Interventions to Obtain Goals PT Treatment Plan: Balance/Proprioception, Functional Activities, Gait Training , Patient/Family Education, Therapeutic Exercise, N/A OT Treatment Plan: ADL (Basic Care), Balance Training, Pt./Family Education, Ther. Exercise for ADL Goals Progress/Modifications: Patient is progressing nicely with therapy. She requests ibuprofen for as needed use for her knees. She does have a remote history of chronic kidney disease. At the present time however her creatinine is stable. I told her that she could have one or 2 doses daily and we would monitor her creatinine. No evidence of underlying GI issues at this time. Continues to have some edema but I do not think it is related to heart failure. More likely is related to dependency. She was given a single dose of Lasix yesterday and had about 1200 cc out. Continue to monitor carefully.
--- NOTE | 2017-08-25 13:33 | IRU Team Meeting ---
IRU Team Meeting - Nursing Bladder Assistive Devices Utilized:: Absorbent Pad Bladder Management Level of Assist: Maximal Assistance Bladder Frequency of Accidents: No accidents Bowel Assistive Devices Utilized:: Medication, Absorbent Pad Bowel Management Level of Assist: Maximal Assistance Vital Signs: Vital Signs - 24 hr 08/24/17 16:00 08/25/17 00:00 08/25/17 08:00 Temperature 98.0 F 97.9 F 97.6 F Pulse Rate 85 102 H 93 Respiratory Rate 20 16 16 Blood Pressure 143/76 H 164/80 H 135/79 Pulse Oximetry 99 96 93 Current Medications: Acetaminophen (Tylenol) 1,000 mg PO TID [facility] Last Admin: 08/25/17 08:55 Dose: 1,000 mg Ascorbic Acid (Vitamin C) 1,000 mg PO DAILY [facility] Last Admin: 08/25/17 08:57 Dose: 1,000 mg Aspirin (Ecotrin) 81 mg PO DAILY [facility] Last Admin: 08/25/17 08:57 Dose: 81 mg Atorvastatin Calcium (Lipitor) 10 mg PO [facility] Last Admin: 08/24/17 20:50 Dose: 10 mg Brimonidine/Timolol (Combigan Eye Drops) 1 drop RIGHT EYE Q12HR [facility] Last Admin: 08/25/17 08:59 Dose: 1 drop Brinzolamide (Azopt) 1 drop RIGHT EYE BID [facility] Last Admin: 08/25/17 08:59 Dose: 1 drop Cholecalciferol (Vit. D-3) 2,000 unit PO DAILY [facility] Last Admin: 08/25/17 08:54 Dose: 2,000 unit Erythromycin (Ilotycin) 1 applic LEFT EYE HS [facility] Last Admin: 08/24/17 20:52 Dose: 1 applic Famciclovir (Famvir) 250 mg PO BID [facility] Last Admin: 08/25/17 08:57 Dose: 250 mg Famotidine (Pepcid) 20 mg PO BID [facility] Last Admin: 08/22/17 09:49 Dose: 20 mg Folic Acid (Folate) 1 mg PO DAILY [facility] Last Admin: 08/25/17 08:55 Dose: 1 mg Gabapentin (Neurontin) 100 mg PO DAILY [facility] Last Admin: 08/25/17 08:57 Dose: 100 mg Ibuprofen (Motrin) 400 mg PO Q6H PRN PRN Reason: Pain Insulin Aspart (Novolog) 6 unit SQ 0730,1130,1700 [facility] Last Admin: 08/25/17 12:32 Dose: 6 unit Insulin Glargine (Lantus) 16 unit SQ DAILY [facility] Last Admin: 08/25/17 09:17 Dose: 16 unit Levothyroxine Sodium (Synthroid) 25 mcg PO ACB [facility] Last Admin: 08/25/17 05:31 Dose: 25 mcg Metoclopramide HCl (Reglan) 10 mg PO ACHS [facility] Last Admin: 08/25/17 13:09 Dose: 10 mg Metoprolol Succinate (Toprol Xl) 12.5 mg PO BID [facility] Last Admin: 08/25/17 08:54 Dose: 12.5 mg Multi-Ingredient Ointment (Eucerin) 1 applic TP PRN PRN Last Admin: 08/23/17 06:43 Dose: 1 applic Ammonium Lactate 12% 140 Gm [For Lac- Hydrin) 0 gm PO DAILY [facility] Last Admin: 08/25/17 09:09 Dose: Not Given --Pom--Bryanna Moisture Barrier Antifungal Cream 1 applicatio PO TID [facility] Last Admin: 08/25/17 09:02 Dose: 1 applicatio --Pom--Voriconazole (50 Mg Tablets) 0 mg PO Q12HR [facility] Last Admin: 08/25/17 09:01 Dose: 250 mg Polyethylene Glycol (Miralax) 17 gm PO BID [facility] Last Admin: 08/25/17 09:00 Dose: Not Given Prednisolone Acetate (Pred Forte) 1 drop OP DAILY [facility] Last Admin: 08/25/17 09:00 Dose: 1 drop Tramadol HCl (Ultram) 50 mg PO Q4H PRN PRN Reason: Pain Last Admin: 08/25/17 06:06 Dose: 50 mg Triamcinolone Acetonide (Kenalog) 1 applic TOP TID PRN PRN Reason: Itching Last Admin: 08/24/17 12:22 Dose: 1 applic Current Medical Issues: Diabetes mellitus, hypertension, eczema, glaucoma, aspergilloma Comments: I certify that I personally led the interdisciplinary team meeting and agree with comments, barriers and goals indicated. Team meeting was held in the patient's room with the patient and the following family members present: Patient's two cousins Ms. Isaac is very cooperative and is improving with therapy. She does have some urinary incontinence issues which are alleviated with scheduled bathroom breaks every 2 hours or so. She was given Lasix as a one-time order. Ibuprofen was started today. She has tramadol available if needed and is receiving Tylenol and gabapentin on a routine basis. She does have some issues with constipation and is on MiraLAX. Hemoglobin 8.9 with negative stool occult blood. Her A1c is reasonable at 6.7%. - Speech Therapy She has done well with speech therapy. Memory aids are recommended. Likely will not need further speech intervention. Formal to medication and cognitive evaluation has been completed. She does not have evidence of dysphasia nor dysarthria at this time. She does have a tangential speech pattern. Cognitive evaluation did reveal decreased auditory processing possibly consistent with her known hearing loss. - Physical Therapy Bed, Chair, Wheelchair Transfer Assist: Moderate Assistance Ambulation Ability: Maximal Assistance, 1 Person Assist Ambulation Distance: 62 Wheelchair Propulsion Ability: Stand By Assist/Supervision Wheelchair Propulsion Distance: 160 Stair Climbing Ability: Patient Unsafe/Unable Comments: She is progressing with goals with physical therapy regarding gait and transfers. She is limited regarding lower extremity pain in her knees. Patient does have difficulty focusing at times but does demonstrate good safety awareness. - Occupational Therapy Eating Ability: Independent Grooming Ability: Stand By Assist/Supervision Bathing Ability: Modified Independent Upper Body Dressing Ability: Modified Independent Lower Body Dressing Ability: Contact Guard Assistance Tub Transfer Assist: Patient Unsafe/Unable Toileting Assist: Stand By Assist/Supervision Toilet Transfer Assist: Stand By Assist/Supervision Comments: She has been very cooperative with occupational therapy as well. Improvements are noted with ADLs. Some concerns about carryover ability related to cognition or understanding. Recommend continued OT. - Goals Physical Therapy Goals: 08/25/17 Goals: 1.) Walk 100 feet stand by assist. 2.) Complete transfers with modified independence (using walker only.) Occupational Therapy Goals: OT goals 08/25: 1.) LB dressing with supervision. 2.) Increase hand strength to be able to don socks on sock aid. - Barriers to Discharge Barriers to Attaining Goals: Weakness (patient is working on therapeutic exercise to improve strength.), Balance (patient is working on balance and proprioception exercises.), Pain Control (pain reduction modalities, ice pack as well as adjustment in pain medications (ibuprofen, tramadol, Neurontin, Tylenol) are being utilized.), Other (patient has difficulty focusing on task. Encouragement and redirection is being performed frequently to keep her on task. ) - Care Plan Anticipated Length of Stay (days): 7 Anticipated DC Destination: Long Term/Facility I have led this team conference and agree with the plan.
[2017-08-25] MEDS: IBUPROFEN 400 MG TABLET PO PRN (20:54)
[2017-08-25] MEDS: ATORVASTATIN 10 MG TABLET PO SCH (20:57)
[2017-08-25] MEDS: ERYTHROMYCIN 0.5% EYE OINTMENT 3.5gm LEFT EYE SCH (20:59)
[2017-08-26] MEDS: LEVOTHYROXINE 25 MCG TABLET PO SCH (06:04)
[2017-08-26] MEDS: ACETAMINOPHEN 500 MG TABLET PO SCH ×3 (08:45→20:34)
[2017-08-26] MEDS: FAMCICLOVIR 500 MG TABLET PO SCH ×2 (08:46→20:33)
[2017-08-26] MEDS: FOLIC ACID 1 MG TABLET PO SCH (08:46)
[2017-08-26] MEDS: INSULIN ASPART 100unit/ml INJECTION SQ SCH ×3 (08:47→17:35)
[2017-08-26] MEDS: ASCORBIC ACID 500 MG TABLET PO SCH (08:47)
[2017-08-26] MEDS: EYE RIGHT EYE SCH ×2 (08:48→20:32)
[2017-08-26] MEDS: BRINZOLAMIDE 1% RIGHT EYE SCH ×2 (08:48→20:32)
[2017-08-26] MEDS: BRIMONIDINE/TIMOLOL 0.2%-0.5% EYE DROPS 5ml RIGHT EYE SCH ×2 (08:48→20:34)
[2017-08-26] MEDS: ASPIRIN *EC* 81 MG TABLET PO SCH (08:49)
[2017-08-26] MEDS: GABAPENTIN 100 MG CAPSULE PO SCH (08:50)
[2017-08-26] MEDS: INSULIN GLARGINE 100unit/ml INJECTION SQ SCH (08:50)
[2017-08-26] MEDS: POLYETHYL GLYCOL 3350 17gm PACKET PO SCH ×2 (08:51→20:35)
[2017-08-26] MEDS: PrednisoLONE 1% EYE DROPS 5ml OP SCH (08:51)
[2017-08-26] MEDS: VORICONAZOLE 50 MG PO SCH ×2 (08:52→20:35)
[2017-08-26] MEDS: IBUPROFEN 400 MG TABLET PO PRN ×2 (11:03→20:33)
[2017-08-26] MEDS: AMMONIUM LACTATE PO SCH (12:04)
--- NOTE | 2017-08-26 13:42 | Progress Note ---
- Date 08/26/17 Subjective: María was seen in the hallway. Her biggest complaint is that she doesn't want her skin to get "crusty" and asked for another tube of A&D, which she mixes with Eucerin. She denies n/v. Appetite has been good. Denies constipation. Objective Vital signs: Temperature 97.5 F 08/26/17 08:00 Pulse Rate 85 08/26/17 08:00 Respiratory Rate 16 08/26/17 08:00 Blood Pressure 112/69 08/26/17 08:00 Pulse Oximetry 100 08/26/17 08:00 Height/Weight/BMI: Height 1.73 m Weight 75.9 kg Body Mass Index 25.4 - Constitutional Present: no acute distress, thin - Routine HEENT Exam Head: Present: normocephalic ENT: Present: oropharynx clear Comments: left eye cataract - Routine Respiratory Exam Present: CTA bilaterally - Routine Cardiovascular Exam Present: RRR, S1, S2 - Routine Abdominal Exam Present: soft, normoactive bowel sounds, non distended, non tender - Routine Extremities Exam Present: edema (BLE, dependent) - Routine Skin Exam Present: intact, dry, warm - Routine Neurological Exam Present: alert, oriented X3 - Routine Psychiatric Exam Present: normal affect, normal thought process, cooperative Results - Labs CBC & Chem 7: 08/22/17 03:57 08/22/17 03:57 Assessment and Plan (1) Debility Current visit: Yes Status: Acute (2) Diabetes mellitus type 1 with manifestations, uncontrolled Current visit: Yes Status: Chronic Assessment and Plan: Assessment Generalized debilitation from immobility and multiple medical problems Diabetes mellitus on long-term insulin therapy (A1c 6.7) Severe peripheral diabetic neuropathy Chronic constipation with postprandial fullness/early satiety-r/o gastroparesis secondary to diabetes. Hypertension Presumed pulmonary fungal infection, on voriconazole History of non-Hodgkin's lymphoma (versus Hodgkin's lymphoma) uncertain if in remission. Previously treated with chemotherapy and radiation therapy. Glaucoma and markedly reduced vision History of CVA 3 with resultant expressive dysphasia Hypothyroidism Plan Iron and B12 were normal. Stool for occult blood was negative. Blood sugars under reasonable control. BP variable; currently on metoprolol 12.5 mg BID. HR occ tachycardic; could potentially increase to 25 mg BID if this continues. Given diabetes, will start low-dose lisinopril (d/w Dr. Love). Making significant progress with PT -- able to walk 60 feet with therapy. Repeat CBC and BMP on 08/28. - Physician Narrative Narrative: Date: 08/26/17 Time: 1331 Hospital Course Summary Disclaimer: The visit summary below is not to be considered part of the above Progress Note. Hospital Course: 08/22/17-Hospitalist consultation Agree with admission to IRU for strengthening and improvement in functional abilities. Check iron studies, B12 and folate for workup of her anemia. Follow blood sugars and adjust insulin as needed. Continue MiraLAX and trial of Reglan for sxs likely due to gastroparesis. Watch for se's to Reglan. Check TSH given her hypothyroidism and constipation. Continue levothyroxine. Continue aspirin and atorvastatin given her history of CVA. Continue Neurontin for peripheral neuropathy. Continue metoprolol for hypertension. Hospital services will continue to follow patient throughout her stay. Patient will need assistance from case management to establish with PCP upon discharge. 08/26/17 Iron and B12 were normal. Stool for occult blood was negative. Blood sugars under reasonable control. BP variable; currently on metoprolol 12.5 mg BID. HR occ tachycardic; could potentially increase to 25 mg BID if this continues. Given diabetes, will start low-dose lisinopril (d/w Dr. Love). Making significant progress with PT -- able to walk 60 feet with therapy.
[2017-08-26] MEDS: ATORVASTATIN 10 MG TABLET PO SCH (20:34)
[2017-08-26] MEDS: ERYTHROMYCIN 0.5% EYE OINTMENT 3.5gm LEFT EYE SCH (20:35)
[2017-08-27] MEDS: LEVOTHYROXINE 25 MCG TABLET PO SCH ×2 (05:12→05:58)
[2017-08-27] MEDS: ASPIRIN *EC* 81 MG TABLET PO SCH (08:42)
[2017-08-27] MEDS: INSULIN ASPART 100unit/ml INJECTION SQ SCH ×3 (08:42→17:44)
[2017-08-27] MEDS: BRIMONIDINE/TIMOLOL 0.2%-0.5% EYE DROPS 5ml RIGHT EYE SCH ×2 (08:43→21:20)
[2017-08-27] MEDS: EYE RIGHT EYE SCH ×2 (08:43→21:20)
[2017-08-27] MEDS: BRINZOLAMIDE 1% RIGHT EYE SCH ×2 (08:43→21:20)
[2017-08-27] MEDS: ACETAMINOPHEN 500 MG TABLET PO SCH ×3 (08:44→21:18)
[2017-08-27] MEDS: ASCORBIC ACID 500 MG TABLET PO SCH (08:44)
[2017-08-27] MEDS: FAMCICLOVIR 500 MG TABLET PO SCH ×2 (08:45→21:18)
[2017-08-27] MEDS: GABAPENTIN 100 MG CAPSULE PO SCH (08:45)
[2017-08-27] MEDS: INSULIN GLARGINE 100unit/ml INJECTION SQ SCH (08:45)
[2017-08-27] MEDS: FOLIC ACID 1 MG TABLET PO SCH (08:45)
[2017-08-27] MEDS: VORICONAZOLE 50 MG PO SCH ×2 (08:47→21:21)
[2017-08-27] MEDS: PrednisoLONE 1% EYE DROPS 5ml OP SCH (08:47)
[2017-08-27] MEDS: POLYETHYL GLYCOL 3350 17gm PACKET PO SCH ×2 (08:47→21:21)
[2017-08-27] MEDS: LISINOPRIL 2.5 MG TABLET PO SCH (11:20)
[2017-08-27] MEDS: AMMONIUM LACTATE PO SCH (11:22)
[2017-08-27] MEDS: IBUPROFEN 400 MG TABLET PO PRN ×2 (11:23→21:19)
--- NOTE | 2017-08-27 14:49 | Progress Note ---
- Date 08/27/17 Subjective: María is seen in follow up. She has been out in the [place] in wheelchair several times today. Reports she is motivated to get better. She reports a near fall, and states her left knee "gave out." She states that she is "in a good place." She is "trying to get ready for my week, so forgive me if I am rude." Reports she is motivated to get stronger, and is working with "the PT" and "the OT." She is very hyperverbal, difficulty to redirect. Some of her conversation is fairly non-sensical. She is trying to tell me about her peripheral neuropathy- "it's like those soldiers who come back with a leg injury. Only they don't have their leg, but mine is still here. It feels funny." She also reports that she likes her purple socks, and she doesn't think that the socks are why her knee is giving out. She is a bit suspicious of why I am seeing her today, but is not rude or terribly uncooperative. Objective Vital signs: Temperature 97.3 F 08/27/17 08:00 Pulse Rate 77 08/27/17 08:00 Respiratory Rate 18 08/27/17 08:00 Blood Pressure 133/76 08/27/17 08:00 Pulse Oximetry 100 08/27/17 08:00 Height/Weight/BMI: Height 1.73 m Weight 75.9 kg Body Mass Index 25.4 - Constitutional Present: no acute distress, average body habitus, cooperative - Routine HEENT Exam Head: Present: normocephalic, atraumatic Eye: Present: cataracts (Abnormal left eye with dysconjugate gaze. ) ENT: Present: mucous membranes moist - Routine Respiratory Exam Present: CTA bilaterally. Absent: rales, wheezes, crackles - Routine Cardiovascular Exam Present: RRR, S1, no murmur - Routine Abdominal Exam Present: soft - Routine Extremities Exam Present: edema (Mild LE edema, bilaterally). Absent: calf tenderness, Juan Carlos's sign - Routine Musculoskeletal Exam Musculoskeletal: Present: limited range of motion, other (Left knee is not tender with normal ROM. ). Absent: normal strength, normal gait - Routine Skin Exam Present: intact, dry, warm - Routine Neurological Exam Present: alert, sensory deficit (Chronic DPN) - Routine Psychiatric Exam Present: cooperative. Absent: normal thought process, good insight, good judgment (Suspect significant underlying mental health concerns. ) - Additional findings Additional findings: Male pattern baldness. Appears older than stated age. Results - Labs CBC & Chem 7: 08/22/17 03:57 08/22/17 03:57 Assessment and Plan (1) Debility Current visit: Yes Status: Acute (2) Diabetes mellitus type 1 with manifestations, uncontrolled Current visit: Yes Status: Chronic Assessment and Plan: Assessment Generalized debilitation from immobility and multiple medical problems Diabetes mellitus on long-term insulin therapy (A1c 6.7) Severe peripheral diabetic neuropathy Chronic constipation with postprandial fullness/early satiety-r/o gastroparesis secondary to diabetes. Hypertension Presumed pulmonary fungal infection, on voriconazole History of non-Hodgkin's lymphoma (versus Hodgkin's lymphoma) uncertain if in remission. Previously treated with chemotherapy and radiation therapy. Glaucoma and markedly reduced vision History of CVA 3 with resultant expressive dysphasia Hypothyroidism Plan 08/27/17 Iron and B12 were normal. Stool for occult blood was negative. Will assess Ferritin, as that could potentially worsen her peripheral neuropathy. Continue Insulin- BG is fairly stable. Continue Gabapentin for pain control. BP control is improving on addition of MEENAKSHI. Continue beta-eli. Await psychiatry referral- suspect significant underlying mental health DO. Making significant progress with PT -- able to walk 60 feet with therapy. Repeat labs on 08/28. Will potentially need placement. DVT Prophylaxis: SCD's Resuscitation Status: Full Code - Physician Narrative Narrative: Date: 08/27/17 Time: 1444 Hospital Course Summary Disclaimer: The visit summary below is not to be considered part of the above Progress Note. Hospital Course: 08/22/17-Hospitalist consultation Agree with admission to IRU for strengthening and improvement in functional abilities. Check iron studies, B12 and folate for workup of her anemia. Follow blood sugars and adjust insulin as needed. Continue MiraLAX and trial of Reglan for sxs likely due to gastroparesis. Watch for se's to Reglan. Check TSH given her hypothyroidism and constipation. Continue levothyroxine. Continue aspirin and atorvastatin given her history of CVA. Continue Neurontin for peripheral neuropathy. Continue metoprolol for hypertension. Hospital services will continue to follow patient throughout her stay. Patient will need assistance from case management to establish with PCP upon discharge. 08/26/17 Iron and B12 were normal. Stool for occult blood was negative. Blood sugars under reasonable control. BP variable; currently on metoprolol 12.5 mg BID. HR occ tachycardic; could potentially increase to 25 mg BID if this continues. Given diabetes, will start low-dose lisinopril (d/w Dr. Love). Making significant progress with PT -- able to walk 60 feet with therapy. 08/27/17 Iron and B12 were normal. Stool for occult blood was negative. Will assess Ferritin, as that could potentially worsen her peripheral neuropathy. Continue Insulin- BG is fairly stable. Continue Gabapentin for pain control. BP control is improving on addition of MEENAKSHI. Continue beta-eli. Await psychiatry referral- suspect significant underlying mental health DO. Making significant progress with PT -- able to walk 60 feet with therapy. Repeat labs on 08/28. Will potentially need placement.
[2017-08-27] MEDS: ATORVASTATIN 10 MG TABLET PO SCH (21:18)
[2017-08-27] MEDS: ERYTHROMYCIN 0.5% EYE OINTMENT 3.5gm LEFT EYE SCH (21:19)
[2017-08-28] MEDS: LEVOTHYROXINE 25 MCG TABLET PO SCH ×2 (05:22→08:10)
[2017-08-28] MEDS: IBUPROFEN 400 MG TABLET PO PRN ×2 (05:23→21:24)
[2017-08-28] MEDS: INSULIN GLARGINE 100unit/ml INJECTION SQ SCH (08:23)
[2017-08-28] MEDS: INSULIN ASPART 100unit/ml INJECTION SQ SCH ×3 (08:23→17:16)
[2017-08-28] MEDS: ACETAMINOPHEN 500 MG TABLET PO SCH ×3 (08:24→21:23)
[2017-08-28] MEDS: LISINOPRIL 2.5 MG TABLET PO SCH (08:25)
[2017-08-28] MEDS: ASCORBIC ACID 500 MG TABLET PO SCH (08:25)
[2017-08-28] MEDS: FOLIC ACID 1 MG TABLET PO SCH (08:25)
[2017-08-28] MEDS: ASPIRIN *EC* 81 MG TABLET PO SCH (08:25)
[2017-08-28] MEDS: FAMCICLOVIR 500 MG TABLET PO SCH ×2 (08:26→21:23)
[2017-08-28] MEDS: GABAPENTIN 100 MG CAPSULE PO SCH (08:26)
[2017-08-28] MEDS: POLYETHYL GLYCOL 3350 17gm PACKET PO SCH ×2 (08:28→21:24)
[2017-08-28] MEDS: AMMONIUM LACTATE PO SCH (08:56)
[2017-08-28] MEDS: BRIMONIDINE/TIMOLOL 0.2%-0.5% EYE DROPS 5ml RIGHT EYE SCH ×2 (09:00→21:22)
[2017-08-28] MEDS: BRINZOLAMIDE 1% RIGHT EYE SCH ×2 (09:01→21:22)
[2017-08-28] MEDS: EYE RIGHT EYE SCH ×2 (09:01→21:22)
[2017-08-28] MEDS: PrednisoLONE 1% EYE DROPS 5ml OP SCH (09:01)
[2017-08-28] MEDS: VORICONAZOLE 50 MG PO SCH ×2 (10:15→21:25)
--- NOTE | 2017-08-28 10:48 | IRU Progress Note ---
- Subjective/Serverity of Illness Date: 08/28/17 María was evaluated on inpatient rehabilitation. She is in her wheelchair at present. She says she had a "tornado weekend." By this I think she means that her blood sugars are quite variable and also her left knee gave out at one point. However in visiting with therapy today it sounds like she is doing reasonably well with therapy. We discussed her knee pain. She says that her knees are bothering her quite a bit. She has not had them injected in the past. She has not tried Voltaren gel also think we will try that first and then if not improving, consider orthopedic evaluation. Brief therapy update: She was able to ambulate 53 feet with a front-wheeled walker with minimum assistance today. Update on medical issues we are actively monitoring and/or managing as follows: Brief update on medical issues were actively monitoring and managing as follows: 1. Generalized debilitation from immobility and multiple medical problems: Continues to have evidence of debility but improving with therapy. 2. Diabetes mellitus on long-term insulin therapy, not controlled: I reviewed her blood sugars. Management per hospitalist. They are somewhat variable. 3. Hypertension: MEENAKSHI inhibitor was added. Blood pressures appear to be better. 4. Bilateral knee pain: She appears to have osteoarthritis involving the knees. We will add on Voltaren gel. Exam Vital Signs: Temperature 97.5 F 08/28/17 08:00 Pulse Rate 96 08/28/17 08:00 Respiratory Rate 16 08/28/17 08:00 Blood Pressure 124/78 08/28/17 08:00 Pulse Oximetry 95 08/28/17 08:00 Height/Weight/BMI: Height 1.73 m Weight 75.9 kg Body Mass Index 25.4 - Constitutional Present: well nourished, well developed, thin - Routine HEENT Exam Head: Present: normocephalic Eye: Present: EOMI. Absent: PERRL ENT: Present: mucous membranes dry, oropharynx clear - Routine Neck Exam Present: supple - Routine Respiratory Exam Present: CTA bilaterally. Absent: dyspnea, wheezes, crackles - Routine Cardiovascular Exam Present: RRR, S1, S2 - Routine Abdominal Exam Present: soft, normoactive bowel sounds, non distended. Absent: tenderness - Routine Extremities Exam Present: edema, normal capillary refill Comments: Minimal if any effusion noted in the knees. Full range of motion. Knees are not warm nor red. - Routine Back/Spine/Pelvis Exam Back/Spine: Present: full ROM - Routine Skin Exam Present: dry, warm - Routine Neurological Exam Present: alert, oriented X3, CN II-XII intact - Routine Psychiatric Exam Present: normal affect IRU A/P (1) Debility Current visit: Yes Status: Acute Continues to work hard with therapy according to the patient. She is making progress and able to ambulate 53 feet with front-wheeled walker. Knee pain appears to be a barrier to her progress however. (2) Diabetes mellitus type 1 with manifestations, uncontrolled Current visit: Yes Status: Chronic Blood sugars are variable. Some of them are over 200. Management per hospitalist service. (3) Glaucoma Qualifiers: Glaucoma type: unspecified Laterality: bilateral Qualified Code(s): H40.9 - Unspecified glaucoma Current visit: Yes Status: Chronic (4) Hypertension Qualifiers: Hypertension type: essential hypertension Qualified Code(s): I10 - Essential (primary) hypertension Current visit: Yes Status: Chronic Blood pressure control is improved. (5) Polyneuropathy Current visit: Yes Status: Chronic (6) Dermatitis, eczematoid Qualifiers: Eczema type: unspecified Qualified Code(s): L30.9 - Dermatitis, unspecified Current visit: Yes Status: Chronic (7) DJD (degenerative joint disease) of knee Qualifiers: Osteoarthritis type: primary Laterality: bilateral Qualified Code(s): M17.0 - Bilateral primary osteoarthritis of knee Current visit: Yes Status: Chronic Complains of pain in both knees, left greater than right. This is a barrier to her progress. We'll add on topical Voltaren gel. If ineffective, may consider orthopedic consult for injection. DVT Prophylaxis: SCD's Resuscitation Status: Full Code - Course Hospital Course: Venkatesh Lopez MD: 08/22/17 11:05 Patient is settling into rehabilitation. Just getting assessed by PT, OT and speech therapy. Patient would like to talk to her psychiatrist about her "thoughts." 08/24/17 10:42 Making progress with therapy. Eczematoid dermatitis noted on left antecubital fossa. Triamcinolone ordered. Reviewed data from outside records. 08/25/17 11:03 She is progressing with therapy. Labs are stable. Blood sugars 150-220. No hypoglycemic spells. 08/28/17 10:49 Continues to progress with therapy. Labs appear to be stable. Creatinine normal but we will repeat tomorrow in view of admission of Voltaren gel to knees. - Interventions to Obtain Goals PT Treatment Plan: Balance/Proprioception, Functional Activities, Gait Training , Patient/Family Education, Therapeutic Exercise, N/A OT Treatment Plan: ADL (Basic Care), Balance Training, Pt./Family Education, Ther. Exercise for ADL Goals Progress/Modifications: Time spent with patient and on floor reviewing data and documentin min Medical decision-making: Blood sugars are reviewed. Blood pressures improved. Continues to be hyperverbal. Chest exam is clear and heart exam is unchanged. Does have some edema but I think this is dependent in origin. Does complain of bilateral knee pain which no doubt is related to underlying primary osteoarthritis. We'll add on topical Voltaren gel. It is noted that she is also on oral ibuprofen and for this reason we will double check a creatinine tomorrow. Continue working with therapy.
[2017-08-28] MEDS: DICLOFENAC 1% TOP GEL 100gm TP SCH ×3 (13:42→21:22)
[2017-08-28] MEDS: ERYTHROMYCIN 0.5% EYE OINTMENT 3.5gm LEFT EYE SCH (21:22)
[2017-08-28] MEDS: ATORVASTATIN 10 MG TABLET PO SCH (21:23)
[2017-08-29] MEDS: TRAMADOL 50 MG TABLET PO PRN ×3 (01:20→19:44)
[2017-08-29] MEDS: LEVOTHYROXINE 25 MCG TABLET PO SCH (05:30)
[2017-08-29] MEDS: IBUPROFEN 400 MG TABLET PO PRN ×2 (05:30→17:22)
[2017-08-29] MEDS: INSULIN GLARGINE 100unit/ml INJECTION SQ SCH (08:26)
[2017-08-29] MEDS: ACETAMINOPHEN 500 MG TABLET PO SCH ×4 (08:27→22:45)
[2017-08-29] MEDS: INSULIN ASPART 100unit/ml INJECTION SQ SCH ×3 (08:27→17:22)
[2017-08-29] MEDS: ASCORBIC ACID 500 MG TABLET PO SCH (08:27)
[2017-08-29] MEDS: GABAPENTIN 100 MG CAPSULE PO SCH (08:28)
[2017-08-29] MEDS: ASPIRIN *EC* 81 MG TABLET PO SCH (08:28)
[2017-08-29] MEDS: LISINOPRIL 2.5 MG TABLET PO SCH (08:28)
[2017-08-29] MEDS: FAMCICLOVIR 500 MG TABLET PO SCH ×3 (08:28→22:46)
[2017-08-29] MEDS: FOLIC ACID 1 MG TABLET PO SCH (08:28)
[2017-08-29] MEDS: EYE RIGHT EYE SCH ×3 (08:29→22:46)
[2017-08-29] MEDS: BRINZOLAMIDE 1% RIGHT EYE SCH ×3 (08:29→22:46)
[2017-08-29] MEDS: BRIMONIDINE/TIMOLOL 0.2%-0.5% EYE DROPS 5ml RIGHT EYE SCH ×3 (08:29→22:46)
[2017-08-29] MEDS: PrednisoLONE 1% EYE DROPS 5ml OP SCH (08:30)
[2017-08-29] MEDS: POLYETHYL GLYCOL 3350 17gm PACKET PO SCH (08:30)
[2017-08-29] MEDS: DICLOFENAC 1% TOP GEL 100gm TP SCH ×5 (10:30→22:46)
[2017-08-29] MEDS: VORICONAZOLE 50 MG PO SCH ×2 (10:36→20:03)
[2017-08-29] MEDS: AMMONIUM LACTATE PO SCH ×2 (10:38→10:42)
[2017-08-29] MEDS ORDERED: POLYETHYL GLYCOL 3350 17gm PACKET PO PRN (15:13)
--- NOTE | 2017-08-29 16:03 | IRU Progress Note ---
- Subjective/Serverity of Illness Date: 08/29/17 María was reassessed on inpatient rehabilitation. She says that the Voltaren gel has significantly helped her knee pain. However now her hips hurt more. She was wondering about getting "an injection." I told her that the injections work better for the knees and at the present time we want to give it some time. However we will try a heating pad to see if that will help the hip pain. She denies any chest pain or shortness of breath. She denies any cough. Her appetite is adequate. I reviewed therapy notes. She is making progress. She is able to ambulate 53 feet with a front-wheeled walker with maximum assistance. Medically, she is stable. Her blood sugars are reviewed and are stable. Exam Vital Signs: Temperature 97.5 F 08/29/17 15:43 Pulse Rate 92 08/29/17 15:43 Respiratory Rate 18 08/29/17 15:43 Blood Pressure 120/63 08/29/17 15:43 Pulse Oximetry 100 08/29/17 15:43 Height/Weight/BMI: Height 1.73 m Weight 77.5 kg Body Mass Index 25.4 - Constitutional Present: mild distress, well nourished, well developed, cooperative - Routine HEENT Exam Head: Present: normocephalic, atraumatic - Routine Neck Exam Present: supple - Routine Respiratory Exam Present: CTA bilaterally. Absent: dyspnea, respiratory distress, wheezes - Routine Cardiovascular Exam Present: RRR, S1, S2. Absent: murmur - Routine Extremities Exam Present: no edema Results IRU - Labs Labs: Reviewed BMP with creatinine normal but BUN elevated. IRU A/P (1) Debility Current visit: Yes Status: Acute Continues to have multiple functional deficits but is making progress with therapy. Continue working with her. (2) Diabetes mellitus type 1 with manifestations, uncontrolled Current visit: Yes Status: Chronic Blood sugars are reviewed and overall look good. Has not had hypoglycemic episodes. (3) Glaucoma Qualifiers: Glaucoma type: unspecified Laterality: bilateral Qualified Code(s): H40.9 - Unspecified glaucoma Current visit: Yes Status: Chronic (4) Hypertension Qualifiers: Hypertension type: essential hypertension Qualified Code(s): I10 - Essential (primary) hypertension Current visit: Yes Status: Chronic Patient's blood pressure is reviewed and is stable. (5) Polyneuropathy Current visit: Yes Status: Chronic (6) Dermatitis, eczematoid Qualifiers: Eczema type: unspecified Qualified Code(s): L30.9 - Dermatitis, unspecified Current visit: Yes Status: Chronic (7) DJD (degenerative joint disease) of knee Qualifiers: Osteoarthritis type: primary Laterality: bilateral Qualified Code(s): M17.0 - Bilateral primary osteoarthritis of knee Current visit: Yes Status: Chronic DVT Prophylaxis: SCD's Resuscitation Status: Full Code - Course Hospital Course: Venkatesh Lopez MD: 08/22/17 11:05 Patient is settling into rehabilitation. Just getting assessed by PT, OT and speech therapy. Patient would like to talk to her psychiatrist about her "thoughts." 08/24/17 10:42 Making progress with therapy. Eczematoid dermatitis noted on left antecubital fossa. Triamcinolone ordered. Reviewed data from outside records. 08/25/17 11:03 She is progressing with therapy. Labs are stable. Blood sugars 150-220. No hypoglycemic spells. 08/28/17 10:49 Continues to progress with therapy. Labs appear to be stable. Creatinine normal but we will repeat tomorrow in view of admission of Voltaren gel to knees. 08/29/17 16:03 Blood sugars are stable. Creatinine normal although BUN elevated. Voltaren gel has significantly helped her knee pain. Getting some hip pain now. Progressing with therapy. - Interventions to Obtain Goals PT Treatment Plan: Balance/Proprioception, Functional Activities, Gait Training , Patient/Family Education, Therapeutic Exercise, N/A OT Treatment Plan: ADL (Basic Care), Balance Training, Pt./Family Education, Ther. Exercise for ADL Goals Progress/Modifications: Had a long discussion about the patient's discomfort in the knees and hips. At the present time the Voltaren gel does appear to be of benefit. We discussed other options regarding the hip pain. I imagine this is related to additional activity that she is doing at the present time with underlying osteoarthritis. She wondered about an injection and I explained that injections for the knees were much more successful. We will try a heating pad to see if that helps. She is progressing with therapy. At the present time her blood sugars are stable.
[2017-08-29] MEDS: ATORVASTATIN 10 MG TABLET PO SCH ×2 (19:45→22:46)
[2017-08-29] MEDS: ERYTHROMYCIN 0.5% EYE OINTMENT 3.5gm LEFT EYE SCH ×2 (19:49→22:46)
[2017-08-29] MEDS: TRIAMCINOLONE 0.1% CREAM 15 G TUBE TOP PRN (19:58)
[2017-08-30] MEDS: LEVOTHYROXINE 25 MCG TABLET PO SCH (05:35)
[2017-08-30] MEDS: INSULIN ASPART 100unit/ml INJECTION SQ SCH ×2 (08:43→12:14)
[2017-08-30] MEDS: ACETAMINOPHEN 500 MG TABLET PO SCH ×3 (08:55→20:01)
[2017-08-30] MEDS: ASPIRIN *EC* 81 MG TABLET PO SCH (08:56)
[2017-08-30] MEDS: BRIMONIDINE/TIMOLOL 0.2%-0.5% EYE DROPS 5ml RIGHT EYE SCH ×3 (08:57→20:06)
[2017-08-30] MEDS: BRINZOLAMIDE 1% RIGHT EYE SCH ×2 (08:58→20:01)
[2017-08-30] MEDS: EYE RIGHT EYE SCH ×2 (08:58→20:01)
[2017-08-30] MEDS: DICLOFENAC 1% TOP GEL 100gm TP SCH ×4 (08:59→20:03)
[2017-08-30] MEDS: ASCORBIC ACID 500 MG TABLET PO SCH (08:59)
[2017-08-30] MEDS: TRIAMCINOLONE 0.1% CREAM 15 G TUBE TOP PRN (09:00)
[2017-08-30] MEDS: VORICONAZOLE 50 MG PO SCH ×2 (09:00→20:00)
[2017-08-30] MEDS: INSULIN GLARGINE 100unit/ml INJECTION SQ SCH (09:00)
[2017-08-30] MEDS: AMMONIUM LACTATE PO SCH (09:02)
[2017-08-30] MEDS: FAMCICLOVIR 500 MG TABLET PO SCH ×2 (09:03→20:02)
[2017-08-30] MEDS: FOLIC ACID 1 MG TABLET PO SCH (09:04)
[2017-08-30] MEDS: GABAPENTIN 100 MG CAPSULE PO SCH (09:04)
[2017-08-30] MEDS: LISINOPRIL 2.5 MG TABLET PO SCH (09:05)
[2017-08-30] MEDS: PrednisoLONE 1% EYE DROPS 5ml OP SCH (09:06)
[2017-08-30] MEDS: TRAMADOL 50 MG TABLET PO PRN ×2 (10:53→16:48)
[2017-08-30] MEDS ORDERED: INSULIN ASPART 100unit/ml INJECTION SQ SCH (14:42)
[2017-08-30] MEDS ORDERED: GLUCOSE ORAL GEL 40% 37.5gm PO PRN (14:42)
[2017-08-30] MEDS ORDERED: SALINE FLUSH 10ml SYRINGE IV PRN (15:43)
[2017-08-30] MEDS ORDERED: DEXTROSE 50% SYRINGE 50ml (1 AMP) IVP ONE (15:44)
[2017-08-30] MEDS ORDERED: FALL RISK - PHARMACY CONSULT XX ONE (18:47)
[2017-08-30] MEDS: ERYTHROMYCIN 0.5% EYE OINTMENT 3.5gm LEFT EYE SCH ×2 (19:51→20:06)
[2017-08-30] MEDS: ATORVASTATIN 10 MG TABLET PO SCH (20:02)
[2017-08-30] MEDS: IBUPROFEN 400 MG TABLET PO PRN (20:04)
[2017-08-31] MEDS: TRAMADOL 50 MG TABLET PO PRN ×3 (00:10→13:53)
[2017-08-31] MEDS: LEVOTHYROXINE 25 MCG TABLET PO SCH ×2 (05:22→07:37)
[2017-08-31] MEDS: IBUPROFEN 400 MG TABLET PO PRN ×2 (05:22→08:29)
[2017-08-31] MEDS: FOLIC ACID 1 MG TABLET PO SCH (08:29)
[2017-08-31] MEDS: ACETAMINOPHEN 500 MG TABLET PO SCH ×3 (08:29→20:09)
[2017-08-31] MEDS: GABAPENTIN 100 MG CAPSULE PO SCH (08:30)
[2017-08-31] MEDS: LISINOPRIL 2.5 MG TABLET PO SCH (08:30)
[2017-08-31] MEDS: FAMCICLOVIR 500 MG TABLET PO SCH ×2 (08:30→20:14)
[2017-08-31] MEDS: ASPIRIN *EC* 81 MG TABLET PO SCH (08:31)
[2017-08-31] MEDS: ASCORBIC ACID 500 MG TABLET PO SCH (08:31)
[2017-08-31] MEDS: INSULIN GLARGINE 100unit/ml INJECTION SQ SCH (08:31)
[2017-08-31] MEDS: BRIMONIDINE/TIMOLOL 0.2%-0.5% EYE DROPS 5ml RIGHT EYE SCH ×2 (08:32→20:11)
[2017-08-31] MEDS: BRINZOLAMIDE 1% RIGHT EYE SCH ×2 (08:32→20:11)
[2017-08-31] MEDS: VORICONAZOLE 50 MG PO SCH ×2 (08:32→20:17)
[2017-08-31] MEDS: DICLOFENAC 1% TOP GEL 100gm TP SCH ×3 (08:32→20:09)
[2017-08-31] MEDS: PrednisoLONE 1% EYE DROPS 5ml OP SCH (08:32)
[2017-08-31] MEDS: EYE RIGHT EYE SCH ×2 (08:32→20:11)
[2017-08-31] MEDS: AMMONIUM LACTATE PO SCH (08:34)
--- NOTE | 2017-08-31 11:16 | IRU Progress Note ---
- Subjective/Serverity of Illness Date: 08/31/17 María was assessed in her room on acute inpatient rehabilitation. She states that she had a difficult day yesterday with regard to blood sugars. They got as low as 39. She was very symptomatic. Hospitalist service was apparently contacted and mealtime insulin is being held. Continues on Lantus 16 units daily for long- acting insulin. Today she feels okay. Denies any nausea or vomiting. She states that she has been eating adequately and she feels it was not due to lack of intake. Brief therapy update: Patient is cooperative with therapy but requires multiple verbal cues to stay on task. Ambulate ability has improved from maximum assist to minimum assist. Cognition is a concern. Brief update on medical issues were actively monitoring and managing as follows: 1. Generalized debilitation from immobility and multiple medical problems: Her debility is improving. She is ambulatory short distances. 2. Diabetes mellitus on long-term insulin therapy, not controlled: As noted above, her blood sugars have been low yesterday in the middle of the afternoon. Mealtime insulin has been held. 3. Hypertension: Blood pressures are well controlled at the present time. 4. Bilateral knee pain: She reports the Voltaren gel has been significantly helpful for her bilateral knee pain. Nevertheless, pain is an impediment/ barrier to her progress. Exam Vital Signs: Temperature 98.1 F 08/31/17 07:00 Pulse Rate 88 08/31/17 07:00 Respiratory Rate 24 08/31/17 07:00 Blood Pressure 112/69 08/31/17 07:00 Pulse Oximetry 97 08/31/17 07:00 Height/Weight/BMI: Height 1.73 m Weight 77.5 kg Body Mass Index 25.4 - Constitutional Present: no acute distress, well nourished, well developed, average body habitus , cooperative Comments: Loquacious and hard to stay on task at times. - Routine HEENT Exam Eye: Absent: PERRL ENT: Present: mucous membranes moist, oropharynx clear - Routine Neck Exam Present: supple - Routine Respiratory Exam Present: CTA bilaterally. Absent: wheezes - Routine Cardiovascular Exam Present: RRR, S1, S2, murmur - Routine Abdominal Exam Present: soft, normoactive bowel sounds, non distended. Absent: tenderness - Routine Extremities Exam Present: clubbing (possible), edema - Routine Back/Spine/Pelvis Exam Back/Spine: Present: full ROM - Routine Skin Exam Present: dry, warm - Routine Neurological Exam Present: alert, oriented X3, CN II-XII intact. Absent: vision grossly intact, hearing grossly intact - Routine Psychiatric Exam Present: normal affect, cooperative IRU A/P (1) Debility Current visit: Yes Status: Acute Slow improvement noted. Improving with ambulating ability. Requires multiple verbal cues to stay on task however. (2) Diabetes mellitus type 1 with manifestations, uncontrolled Current visit: Yes Status: Chronic Hypoglycemic episode noted. Hospitalist service has responded by reducing/ stopping mealtime insulin. (3) Glaucoma Qualifiers: Glaucoma type: unspecified Laterality: bilateral Qualified Code(s): H40.9 - Unspecified glaucoma Current visit: Yes Status: Chronic (4) Hypertension Qualifiers: Hypertension type: essential hypertension Qualified Code(s): I10 - Essential (primary) hypertension Current visit: Yes Status: Chronic Blood pressures are well controlled. (5) Polyneuropathy Current visit: Yes Status: Chronic (6) Dermatitis, eczematoid Qualifiers: Eczema type: unspecified Qualified Code(s): L30.9 - Dermatitis, unspecified Current visit: Yes Status: Chronic (7) DJD (degenerative joint disease) of knee Qualifiers: Osteoarthritis type: primary Laterality: bilateral Qualified Code(s): M17.0 - Bilateral primary osteoarthritis of knee Current visit: Yes Status: Chronic DVT Prophylaxis: SCD's Resuscitation Status: Full Code - Course Hospital Course: Venkatesh Lopez MD: 08/22/17 11:05 Patient is settling into rehabilitation. Just getting assessed by PT, OT and speech therapy. Patient would like to talk to her psychiatrist about her "thoughts." 08/24/17 10:42 Making progress with therapy. Eczematoid dermatitis noted on left antecubital fossa. Triamcinolone ordered. Reviewed data from outside records. 08/25/17 11:03 She is progressing with therapy. Labs are stable. Blood sugars 150-220. No hypoglycemic spells. 08/28/17 10:49 Continues to progress with therapy. Labs appear to be stable. Creatinine normal but we will repeat tomorrow in view of admission of Voltaren gel to knees. 08/29/17 16:03 Blood sugars are stable. Creatinine normal although BUN elevated. Voltaren gel has significantly helped her knee pain. Getting some hip pain now. Progressing with therapy. 08/31/17 11:18 Hypoglycemic spell yesterday. Holding mealtime insulin now. Progressing with therapy but requires multiple verbal cues. - Interventions to Obtain Goals PT Treatment Plan: Balance/Proprioception, Functional Activities, Gait Training , Patient/Family Education, Therapeutic Exercise, N/A OT Treatment Plan: ADL (Basic Care), Balance Training, Pt./Family Education, Ther. Exercise for ADL Goals Progress/Modifications: Time spent with patient and on floor reviewing data and documentin min Medical decision-making: Patient does have some edema. We will give additional Lasix. Her blood sugars have been low yesterday and the hospitalist service has held mealtime insulin. Feels okay today. She is tolerating therapy well. She is making progress.
[2017-08-31] MEDS ORDERED: FUROSEMIDE 40 MG TABLET PO SCH (11:30)
--- NOTE | 2017-08-31 18:38 | Progress Note ---
- Date 08/31/17 Subjective: María had a couple low blood sugars yesterday - her lowest was 39 at 1423. Usually when she gets low, she becomes sweaty, but this time, she became "foggy " and couldn't think straight. She hates "lows". She isn't sure why she went so low yesterday, but states that she has been doing quite a bit more walking and more activity. She makes an effort to eat regularly, out of necessity to control her sugars. She denies other concerns at this time. Objective Vital signs: Temperature 97.0 F 08/31/17 15:00 Pulse Rate 76 08/31/17 15:00 Respiratory Rate 18 08/31/17 15:00 Blood Pressure 80/55 08/31/17 15:00 Pulse Oximetry 96 08/31/17 15:00 Height/Weight/BMI: Height 1.73 m Weight 77.5 kg Body Mass Index 25.4 - Constitutional Present: no acute distress, well nourished, well developed, thin - Routine HEENT Exam Head: Present: normocephalic Eye: Present: cataracts (left eye) ENT: Present: oropharynx clear - Routine Respiratory Exam Present: CTA bilaterally - Routine Cardiovascular Exam Present: RRR, S1, S2 - Routine Abdominal Exam Present: soft, normoactive bowel sounds - Routine Extremities Exam Present: edema (BLE) - Routine Skin Exam Present: intact, dry, warm - Routine Neurological Exam Present: alert, oriented X3 - Routine Psychiatric Exam Present: normal affect, normal thought process, cooperative Results - Labs CBC & Chem 7: 08/28/17 05:16 08/29/17 04:32 Assessment and Plan (1) Debility Current visit: Yes Status: Acute (2) Diabetes mellitus type 1 with manifestations, uncontrolled Current visit: Yes Status: Chronic Assessment and Plan: Assessment Generalized debilitation from immobility and multiple medical problems Diabetes mellitus on long-term insulin therapy (A1c 6.7) Severe peripheral diabetic neuropathy Chronic constipation with postprandial fullness/early satiety-r/o gastroparesis secondary to diabetes. Hypertension Presumed pulmonary fungal infection, on voriconazole History of non-Hodgkin's lymphoma (versus Hodgkin's lymphoma) uncertain if in remission. Previously treated with chemotherapy and radiation therapy. Glaucoma and markedly reduced vision History of CVA 3 with resultant expressive dysphasia Hypothyroidism Plan 08/31/17 Hypoglycemia yesterday afternoon with a low of 39. Today, her sugars have all been elevated. She's on her home dose of Lantus. Blood pressure has been lower over the last 2 days as well, with the lowest 80/ 55 this afternoon. Will write hold parameters for lisinopril and BB -- hold if sbp <110. She's also on Lasix per Dr. Lopez, which may be contributing to hypotension. Will reduce dose to 20 mg. Ferritin still pending; last hgb was 9.2. recheck cbc in am. BUN up to 53 on last check -- will recheck in am. Plan is to dc tomorrow; pt reports she will be going to [facility]. Resuscitation Status: Full Code - Physician Narrative Narrative: Date: 08/31/17 Time: 1833 Hospital Course Summary Disclaimer: The visit summary below is not to be considered part of the above Progress Note. Hospital Course: 08/22/17-Hospitalist consultation Agree with admission to IRU for strengthening and improvement in functional abilities. Check iron studies, B12 and folate for workup of her anemia. Follow blood sugars and adjust insulin as needed. Continue MiraLAX and trial of Reglan for sxs likely due to gastroparesis. Watch for se's to Reglan. Check TSH given her hypothyroidism and constipation. Continue levothyroxine. Continue aspirin and atorvastatin given her history of CVA. Continue Neurontin for peripheral neuropathy. Continue metoprolol for hypertension. Hospital services will continue to follow patient throughout her stay. Patient will need assistance from case management to establish with PCP upon discharge. 08/26/17 Iron and B12 were normal. Stool for occult blood was negative. Blood sugars under reasonable control. BP variable; currently on metoprolol 12.5 mg BID. HR occ tachycardic; could potentially increase to 25 mg BID if this continues. Given diabetes, will start low-dose lisinopril (d/w Dr. Love). Making significant progress with PT -- able to walk 60 feet with therapy. 08/27/17 Iron and B12 were normal. Stool for occult blood was negative. Will assess Ferritin, as that could potentially worsen her peripheral neuropathy. Continue Insulin- BG is fairly stable. Continue Gabapentin for pain control. BP control is improving on addition of MEENAKSHI. Continue beta-eli. Await psychiatry referral- suspect significant underlying mental health DO. Making significant progress with PT -- able to walk 60 feet with therapy. Repeat labs on 08/28. Will potentially need placement. 08/28/17 Hypoglycemia yesterday afternoon with a low of 39. Today, her sugars have all been elevated. She's on her home dose of Lantus. Blood pressure has been lower over the last 2 days as well, with the lowest 80/ 55 this afternoon. Will write hold parameters for lisinopril and BB -- hold if sbp <110. She's also on Lasix per Dr. Lopez, which may be contributing to hypotension. Will reduce dose to 20 mg. Ferritin still pending; last hgb was 9.2. recheck cbc in am. BUN up to 53 on last check -- will recheck in am. Plan is to dc tomorrow; pt reports she will be going to [facility].
[2017-08-31] MEDS: ATORVASTATIN 10 MG TABLET PO SCH (20:10)
[2017-08-31] MEDS: ERYTHROMYCIN 0.5% EYE OINTMENT 3.5gm LEFT EYE SCH (20:13)
[2017-09-01] MEDS: IBUPROFEN 400 MG TABLET PO PRN (03:45)
[2017-09-01] MEDS: DICLOFENAC 1% TOP GEL 100gm TP SCH ×4 (03:48→21:18)
[2017-09-01] MEDS: LEVOTHYROXINE 25 MCG TABLET PO SCH ×2 (03:50→07:35)
[2017-09-01] MEDS: ASCORBIC ACID 500 MG TABLET PO SCH (08:47)
[2017-09-01] MEDS: ACETAMINOPHEN 500 MG TABLET PO SCH ×3 (08:47→21:17)
[2017-09-01] MEDS: AMMONIUM LACTATE PO SCH (08:47)
[2017-09-01] MEDS: ASPIRIN *EC* 81 MG TABLET PO SCH (08:48)
[2017-09-01] MEDS: BRINZOLAMIDE 1% RIGHT EYE SCH ×2 (08:49→21:20)
[2017-09-01] MEDS: BRIMONIDINE/TIMOLOL 0.2%-0.5% EYE DROPS 5ml RIGHT EYE SCH ×2 (08:49→21:19)
[2017-09-01] MEDS: EYE RIGHT EYE SCH ×2 (08:49→21:20)
[2017-09-01] MEDS: FAMCICLOVIR 500 MG TABLET PO SCH ×2 (08:50→21:16)
[2017-09-01] MEDS: FOLIC ACID 1 MG TABLET PO SCH (08:51)
[2017-09-01] MEDS: INSULIN GLARGINE 100unit/ml INJECTION SQ SCH (08:51)
[2017-09-01] MEDS: GABAPENTIN 100 MG CAPSULE PO SCH (08:51)
[2017-09-01] MEDS: PrednisoLONE 1% EYE DROPS 5ml OP SCH (08:53)
[2017-09-01] MEDS: VORICONAZOLE 50 MG PO SCH ×2 (08:53→21:23)
[2017-09-01] MEDS ORDERED: FUROSEMIDE 40 MG TABLET PO SCH (09:00)
[2017-09-01] MEDS ORDERED: NS 1,000 ML IV SCH (09:00)
--- NOTE | 2017-09-01 09:41 | Progress Note ---
- Date 09/01/17 Subjective: María's labs came back abnormal, and she's upset that she won't be able to leave today. She intently focuses on this and it was difficult to obtain information regarding any other symptoms other than leg swelling, which is bothering her. Objective Vital signs: Temperature 97.6 F 08/31/17 23:00 Pulse Rate 69 08/31/17 23:00 Respiratory Rate 16 08/31/17 23:00 Blood Pressure 119/68 08/31/17 23:00 Pulse Oximetry 97 08/31/17 23:00 Height/Weight/BMI: Height 1.73 m Weight 77.5 kg Body Mass Index 25.4 - Constitutional Present: no acute distress, well nourished, well developed, thin - Routine HEENT Exam Eye: Present: cataracts (left eye) ENT: Present: oropharynx clear - Routine Respiratory Exam Present: CTA bilaterally - Routine Cardiovascular Exam Present: RRR, S1, S2 - Routine Abdominal Exam Present: soft, non tender - Routine Extremities Exam Present: edema (BLE) - Routine Musculoskeletal Exam Musculoskeletal: Present: moving extremities well - Routine Skin Exam Present: intact, dry, warm - Routine Neurological Exam Present: alert, oriented X3 - Routine Psychiatric Exam Present: cooperative Results - Labs CBC & Chem 7: 09/01/17 04:44 09/01/17 04:44 Assessment and Plan (1) Debility Current visit: Yes Status: Acute (2) Diabetes mellitus type 1 with manifestations, uncontrolled Current visit: Yes Status: Chronic Assessment and Plan: Assessment THAIS (cr increased from 1.1 to 2.1) Macrocytic anemia Generalized debilitation from immobility and multiple medical problems Diabetes mellitus on long-term insulin therapy (A1c 6.7) Severe peripheral diabetic neuropathy Chronic constipation with postprandial fullness/early satiety-r/o gastroparesis secondary to diabetes. Hypertension Presumed pulmonary fungal infection, on voriconazole History of non-Hodgkin's lymphoma (versus Hodgkin's lymphoma) uncertain if in remission. Previously treated with chemotherapy and radiation therapy. Glaucoma and markedly reduced vision History of CVA 3 with resultant expressive dysphasia Hypothyroidism Plan 09/01/17 Discharge plans held today due to THAIS. Suspect that her recent hypoglycemia could be effect of reduced kidney function. NS 1L ordered and all nephrotoxic agents have been held. BP still hypotensive. Ferritin level came back markedly elevated; could be acute phase reaction. She had a normal iron level, high B12 level, and normal folate level. Repeat ferritin level. Albumin was 3.4 on last check -- will repeat in am. Check prealbumin. Recheck CBC and CMP in am. If renal function improves, she may still be able to be discharged to [facility] tomorrow. Resuscitation Status: Full Code - Physician Narrative Narrative: Date: 09/01/17 Time: 0938 Hospital Course Summary Disclaimer: The visit summary below is not to be considered part of the above Progress Note. Hospital Course: 08/22/17-Hospitalist consultation Agree with admission to IRU for strengthening and improvement in functional abilities. Check iron studies, B12 and folate for workup of her anemia. Follow blood sugars and adjust insulin as needed. Continue MiraLAX and trial of Reglan for sxs likely due to gastroparesis. Watch for se's to Reglan. Check TSH given her hypothyroidism and constipation. Continue levothyroxine. Continue aspirin and atorvastatin given her history of CVA. Continue Neurontin for peripheral neuropathy. Continue metoprolol for hypertension. Hospital services will continue to follow patient throughout her stay. Patient will need assistance from case management to establish with PCP upon discharge. 08/26/17 Iron and B12 were normal. Stool for occult blood was negative. Blood sugars under reasonable control. BP variable; currently on metoprolol 12.5 mg BID. HR occ tachycardic; could potentially increase to 25 mg BID if this continues. Given diabetes, will start low-dose lisinopril (d/w Dr. Love). Making significant progress with PT -- able to walk 60 feet with therapy. 08/27/17 Iron and B12 were normal. Stool for occult blood was negative. Will assess Ferritin, as that could potentially worsen her peripheral neuropathy. Continue Insulin- BG is fairly stable. Continue Gabapentin for pain control. BP control is improving on addition of MEENAKSHI. Continue beta-eli. Await psychiatry referral- suspect significant underlying mental health DO. Making significant progress with PT -- able to walk 60 feet with therapy. Repeat labs on 08/28. Will potentially need placement. 08/31/17 Hypoglycemia yesterday afternoon with a low of 39. Today, her sugars have all been elevated. She's on her home dose of Lantus. Blood pressure has been lower over the last 2 days as well, with the lowest 80/ 55 this afternoon. Will write hold parameters for lisinopril and BB -- hold if sbp <110. She's also on Lasix per Dr. Lopez, which may be contributing to hypotension. Will reduce dose to 20 mg. Ferritin still pending; last hgb was 9.2. recheck cbc in am. BUN up to 53 on last check -- will recheck in am. Plan is to dc tomorrow; pt reports she will be going to [facility]. 09/01/17 Discharge plans held today due to THAIS. Suspect that her recent hypoglycemia could be effect of reduced kidney function. NS 1L ordered and all nephrotoxic agents have been held. BP still hypotensive. Ferritin level came back markedly elevated; could be acute phase reaction. She had a normal iron level, high B12 level, and normal folate level. Repeat ferritin level. Albumin was 3.4 on last check -- will repeat in am. Check prealbumin.
--- NOTE | 2017-09-01 10:38 | IRU Progress Note ---
- Subjective/Serverity of Illness Date: 09/01/17 María was assessed in her room on inpatient rehabilitation. Her BUN and creatinine have been noted to be elevated today. She has been on ibuprofen for some time and we did previously monitor her creatinine. Hospitalist service has addressed this and will give her IV fluids and the ibuprofen will be discontinued. She is upset that she cannot go to the custodial today. We will contact them to see if they will accept her tomorrow if her labs are improved. From a therapy standpoint she has done well. Continues to be difficult to redirect at times. We explained to her that her renal function had declined. She then asked if she could be on the Lasix for her swelling. I told her that that would not be a good idea at the present time and we will plan to hold that. She denies any chest pain or shortness of breath. She denies a cough. Her appetite is good. No nausea and no vomiting. Exam Vital Signs: Temperature 97.5 F 09/01/17 07:00 Pulse Rate 66 09/01/17 07:00 Respiratory Rate 16 09/01/17 07:00 Blood Pressure 90/53 09/01/17 07:00 Pulse Oximetry 98 09/01/17 07:00 Height/Weight/BMI: Height 1.73 m Weight 77.5 kg Body Mass Index 25.4 - Constitutional Present: mild distress (she is upset that she cannot go to the custodial today.), well nourished, well developed, cooperative - Routine HEENT Exam Head: Present: normocephalic Eye: Present: EOMI ENT: Present: mucous membranes moist, oropharynx clear - Routine Neck Exam Present: supple - Routine Respiratory Exam Present: CTA bilaterally. Absent: rhonchi, wheezes, crackles - Routine Cardiovascular Exam Present: RRR, S1, S2, murmur - Routine Abdominal Exam Present: soft, normoactive bowel sounds, non distended. Absent: tenderness - Routine Extremities Exam Present: edema - Routine Skin Exam Present: dry, warm - Routine Neurological Exam Present: alert, oriented X3, CN II-XII intact. Absent: vision grossly intact, hearing grossly intact - Routine Psychiatric Exam Present: normal affect, cooperative, good insight, anxious Results IRU - Labs Labs: Have reviewed blood work with elevated BUN and creatinine noted. IRU A/P (1) Debility Current visit: Yes Status: Acute She has improved with therapy but will require continued therapy at a lower level at [facility] level. She has tolerated rehabilitation well. (2) Diabetes mellitus type 1 with manifestations, uncontrolled Current visit: Yes Status: Chronic Patient's blood sugars are reviewed and are doing better. Adjustment in insulin has been undertaken by the hospitalist service. Mealtime insulin is being held. She is on long-acting only at present. (3) Glaucoma Qualifiers: Glaucoma type: unspecified Laterality: bilateral Qualified Code(s): H40.9 - Unspecified glaucoma Current visit: Yes Status: Chronic (4) Hypertension Qualifiers: Hypertension type: essential hypertension Qualified Code(s): I10 - Essential (primary) hypertension Current visit: Yes Status: Chronic Patient's blood pressure is reviewed and is stable. (5) Polyneuropathy Current visit: Yes Status: Chronic (6) Dermatitis, eczematoid Qualifiers: Eczema type: unspecified Qualified Code(s): L30.9 - Dermatitis, unspecified Current visit: Yes Status: Chronic (7) DJD (degenerative joint disease) of knee Qualifiers: Osteoarthritis type: primary Laterality: bilateral Qualified Code(s): M17.0 - Bilateral primary osteoarthritis of knee Current visit: Yes Status: Chronic DVT Prophylaxis: SCD's Resuscitation Status: Full Code - Course Hospital Course: Venkatesh Lopez MD: 08/22/17 11:05 Patient is settling into rehabilitation. Just getting assessed by PT, OT and speech therapy. Patient would like to talk to her psychiatrist about her "thoughts." 08/24/17 10:42 Making progress with therapy. Eczematoid dermatitis noted on left antecubital fossa. Triamcinolone ordered. Reviewed data from outside records. 08/25/17 11:03 She is progressing with therapy. Labs are stable. Blood sugars 150-220. No hypoglycemic spells. 08/28/17 10:49 Continues to progress with therapy. Labs appear to be stable. Creatinine normal but we will repeat tomorrow in view of admission of Voltaren gel to knees. 08/29/17 16:03 Blood sugars are stable. Creatinine normal although BUN elevated. Voltaren gel has significantly helped her knee pain. Getting some hip pain now. Progressing with therapy. 08/31/17 11:18 Hypoglycemic spell yesterday. Holding mealtime insulin now. Progressing with therapy but requires multiple verbal cues. 09/01/17 10:43 Discharge held due to elevated BUN and creatinine. Blood sugars stable on long-acting only. - Interventions to Obtain Goals PT Treatment Plan: Balance/Proprioception, Functional Activities, Gait Training , Patient/Family Education, Therapeutic Exercise, N/A OT Treatment Plan: ADL (Basic Care), Balance Training, Pt./Family Education, Ther. Exercise for ADL Goals Progress/Modifications: Time spent with patient and on floor reviewing data and documentin min Medical decision-making: I have discussed the case with the patient, the hospitalist service on a couple occasions as well as case management. At this time plans are to give her IV fluids and reassess her creatinine and BUN tomorrow morning. If improved she may be dismissed to [facility]. If not better we will probably need to keep her over the weekend. Patient has been advised of this. Her blood pressures are stable. She continues to have edema which no doubt is dependent in origin as well as possibly due to hypoalbuminemia. From a cardiac and respiratory standpoint she seems to be stable at present.
--- NOTE | 2017-09-01 11:23 | Extended Care Facility Orders ---
Admission Orders Admit to:: [facility] Allergies/Adverse Reactions: Allergies acetaminophen [From Percocet] Allergy (Verified 08/21/17 13:35) Fish Containing Products Allergy (Verified 08/21/17 13:35) hydrocodone [From Vicodin] Allergy (Verified 08/21/17 13:35) metformin Allergy (Verified 08/21/17 13:36) morphine Allergy (Verified 08/21/17 13:35) nut - unspecified Allergy (Verified 08/21/17 13:35) oxycodone [From Percocet] Allergy (Verified 08/21/17 13:35) shellfish derived Allergy (Verified 08/21/17 13:35) Admitting Diagnosis: debility Admitting Physician: Venkatesh Lopez MD Attending Physician: Venkatesh Lopez MD Code Status: Full Code Anticiapted Length of Stay: greater than 30 days Rehab Potential: good Rehab Prognosis: good Diet: 08/21/17 Dinner Consistent Carbohydrate Diet [DIET] Calorie Level: 2000 Wound/Incision Care: N/A May use Facility Protocol or Standing Orders: Yes May have flu vaccine: Yes Evaluations/Treatment: PT, OT [facility] Certification: I certify that SNF services are required to be given on an Inpatient basis because of the patients need for halfway care on a continuing basis for the condition(s) for which he/she received inpatient hospital services prior to his/her transfer to the SNF. SNF inpatient care is necessary for the following reasons: To monitor blood glucose levels, blood pressure, pulmonary status and renal function. Indication for [facility]: Diabetic Assessment, Diabetic Education - Additional Information In Event of Arrest: Start CPR,call 911,send patient to the ER Resident is Aware of Diagnosis: Yes Additional Orders: Monitor blood glucose by fingerstick fasting and two hours after each meal. [place] hypoglycemic protocol
--- NOTE | 2017-09-01 13:10 | IRU Team Meeting ---
IRU Team Meeting - Nursing Bladder Assistive Devices Utilized:: Absorbent Pad Bladder Management Level of Assist: Total Assistance Bladder Frequency of Accidents: No accidents; uses device Bowel Assistive Devices Utilized:: Medication Bowel Management Level of Assist: Minimal Assistance Bowel Frequency of Accidents: No accidents; uses device Number of Bowel Accidents: 1 Vital Signs: Vital Signs - 24 hr 08/31/17 15:00 08/31/17 23:00 09/01/17 07:00 Temperature 97.0 F 97.6 F 97.5 F Pulse Rate 76 69 66 Respiratory Rate 18 16 16 Blood Pressure 80/55 119/68 90/53 Pulse Oximetry 96 97 98 Current Medications: Acetaminophen (Tylenol) 1,000 mg PO TID [facility] Last Admin: 09/01/17 08:47 Dose: 1,000 mg Ascorbic Acid (Vitamin C) 1,000 mg PO DAILY [facility] Last Admin: 09/01/17 08:47 Dose: 1,000 mg Aspirin (Ecotrin) 81 mg PO DAILY [facility] Last Admin: 09/01/17 08:48 Dose: 81 mg Atorvastatin Calcium (Lipitor) 10 mg PO [facility] Last Admin: 08/31/17 20:10 Dose: 10 mg Brimonidine/Timolol (Combigan Eye Drops) 1 drop RIGHT EYE Q12HR [facility] Last Admin: 09/01/17 08:49 Dose: 1 drop Brinzolamide (Azopt) 1 drop RIGHT EYE BID [facility] Last Admin: 09/01/17 08:49 Dose: 1 drop Cholecalciferol (Vit. D-3) 2,000 unit PO DAILY [facility] Last Admin: 09/01/17 08:49 Dose: 2,000 unit Diclofenac Sodium (Voltaren) 1 applic TP QID [facility] Last Admin: 09/01/17 08:49 Dose: 1 applic Erythromycin (Ilotycin) 1 applic LEFT EYE HS [facility] Last Admin: 08/31/17 20:13 Dose: 1 applic Famciclovir (Famvir) 250 mg PO BID [facility] Last Admin: 09/01/17 08:50 Dose: 250 mg Famotidine (Pepcid) 20 mg PO BID [facility] Last Admin: 08/22/17 09:49 Dose: 20 mg Folic Acid (Folate) 1 mg PO DAILY [facility] Last Admin: 09/01/17 08:51 Dose: 1 mg Furosemide (Lasix) 20 mg PO DAILY [facility] Stop: 09/02/17 12:00 Last Admin: 09/01/17 08:51 Dose: Not Given Gabapentin (Neurontin) 100 mg PO DAILY [facility] Last Admin: 09/01/17 08:51 Dose: 100 mg Glucose (Glutose 15) 37.5 gm PO PRN PRN PRN Reason: Hypoglycemia Last Admin: 08/30/17 15:09 Dose: 37.5 gm Sodium Chloride (Normal Saline) 1,000 mls @ 150 mls/hr IV .Q6H40M [facility] Stop: 09/01/17 15:39 Last Admin: 09/01/17 09:47 Dose: 150 mls/hr Ibuprofen (Motrin) 400 mg PO Q6H PRN PRN Reason: Pain Last Admin: 09/01/17 03:45 Dose: 400 mg Insulin Aspart (Novolog) 4 unit SQ 0730,1130,1700 [facility] Insulin Glargine (Lantus) 16 unit SQ DAILY [facility] Last Admin: 09/01/17 08:51 Dose: 16 unit Levothyroxine Sodium (Synthroid) 25 mcg PO ACB [facility] Last Admin: 09/01/17 07:35 Dose: Not Given Lisinopril (Prinivil) 2.5 mg PO DAILY [facility] Last Admin: 08/31/17 08:30 Dose: 2.5 mg Metoclopramide HCl (Reglan) 10 mg PO ACHS [facility] Last Admin: 09/01/17 12:06 Dose: 10 mg Metoprolol Succinate (Toprol Xl) 12.5 mg PO BID [facility] Last Admin: 09/01/17 08:52 Dose: 12.5 mg Multi-Ingredient Ointment (Eucerin) 1 applic TP PRN PRN Last Admin: 08/23/17 06:43 Dose: 1 applic Ammonium Lactate 12% 140 Gm [Lac- Hydrin] 0 gm PO DAILY [facility] Last Admin: 09/01/17 08:47 Dose: 1 gm --Pom--Bryanna Moisture Barrier Antifungal Cream 1 applicatio PO TID [facility] Last Admin: 09/01/17 08:50 Dose: 1 applicatio --Pom--Voriconazole (50 Mg Tablets) 0 mg PO Q12HR [facility] Last Admin: 09/01/17 08:53 Dose: 250 mg Polyethylene Glycol (Miralax) 17 gm PO BID PRN Prednisolone Acetate (Pred Forte) 1 drop OP DAILY [facility] Last Admin: 09/01/17 08:53 Dose: 1 drop Sodium Chloride (Iv Flush) 10 ml IV PRN PRN PRN Reason: Flushing Tramadol HCl (Ultram) 50 mg PO Q4H PRN PRN Reason: Pain Last Admin: 08/31/17 13:53 Dose: 50 mg Triamcinolone Acetonide (Kenalog) 1 applic TOP TID PRN PRN Reason: Itching Last Admin: 08/30/17 09:00 Dose: 1 applic Current Medical Issues: Diabetes mellitus, hypertension, knee pain, acute renal failure Comments: I certify that I personally led the interdisciplinary team meeting and agree with comments, barriers and goals indicated. Team meeting was held in the patient's room with the patient and the following family members present: patient alone And continues to improve. Her creatinine however has bumped to 2.1 and she is now on IV fluids for 1 L. Labs will be reassessed tomorrow morning. She has remained afebrile. She would like to be on Lasix but was advised that this is not indicated in view of the renal failure. Denies dyspnea or cough. - Physical Therapy Bed, Chair, Wheelchair Transfer Assist: Contact Guard Assistance Ambulation Ability: Maximal Assistance, 1 Person Assist Ambulation Distance: 125 Wheelchair Propulsion Ability: Stand By Assist/Supervision Wheelchair Propulsion Distance: 225 Stair Climbing Ability: Patient Unsafe/Unable Car Transfer Ability: Contact Guard Assistance Comments: Patient has now been able to ambulate 135 feet with contact guard assistance. She was encouraged to continue to work to improve her functional ability particularly as she moves to skilled care. - Occupational Therapy Eating Ability: Independent Grooming Ability: Stand By Assist/Supervision Bathing Ability: Stand By Assist/Supervision Upper Body Dressing Ability: Modified Independent Lower Body Dressing Ability: Contact Guard Assistance Tub Transfer Assist: Stand By Assist/Supervision Toileting Assist: Contact Guard Assistance Toilet Transfer Assist: Stand By Assist/Supervision Comments: Patient overall has improved and is at supervision/contact guard assistance level overall. Left knee does have discomfort and is somewhat unpredictable. This is particularly true when she is fatigued. - Goals Physical Therapy Goals: 08/25/17 Goals: 1.) Walk 100 feet stand by assist. - partially met, did 136 feet for distance, but requiring contact guard assistance. 2.) Complete transfers with modified independence (using walker only.) - not met, continue. 09/01/17 Goals: 1.) Walk 150 feet with stand by assistance. 1.) Occupational Therapy Goals: OT goals 08/25, 09/01/17: 1.) LB dressing with supervision.- (Pt. requires CGA for safety). 2.) Increase hand strength to be able to don socks on sock aid. - (Goal met). 3.) D/c planning. - Barriers to Discharge Barriers to Attaining Goals: Weakness (therapeutic exercises are undertaken.), Balance (balance and proprioception exercises are undertaken.), Pain Control ( ice pack/modalities and pain medication are provided.), Other (focus to task: Patient requires frequent redirection to task and encouragement.) - Care Plan Anticipated Length of Stay (days): 1 Anticipated DC Destination: Care Home/Facility I have led this team conference and agree with the plan.
--- NOTE | 2017-09-01 13:37 | Pharmacy Consult- Renal Dosing ---
Pharamcy Consul-Renal Dosing - Laboratory Information 08/22/17 08/29/17 09/01/17 03:57 04:32 04:44 BUN 41.0 H 53.0 H* 81.0 H* Creatinine 1.2 1.1 2.1 H - Consult Information RENAL DOSING: Metoclopramide Today's SCr = 2.1 mg/dl. changed to Metoclopramide 5 mg po ACHS based on current renal function Thank you, Shasta [facility]
[2017-09-01] MEDS: METOCLOPRAMIDE 5mg TABLET PO SCH ×2 (16:50→21:16)
[2017-09-01] MEDS: ATORVASTATIN 10 MG TABLET PO SCH (21:17)
[2017-09-01] MEDS: ERYTHROMYCIN 0.5% EYE OINTMENT 3.5gm LEFT EYE SCH (21:21)
[2017-09-02] MEDS: TRAMADOL 50 MG TABLET PO PRN ×2 (05:29→10:20)
[2017-09-02] MEDS: LEVOTHYROXINE 25 MCG TABLET PO SCH (05:29)
[2017-09-02] MEDS: METOCLOPRAMIDE 5mg TABLET PO SCH ×2 (05:29→12:06)
[2017-09-02] MEDS: ACETAMINOPHEN 500 MG TABLET PO SCH (08:45)
[2017-09-02] MEDS: ASPIRIN *EC* 81 MG TABLET PO SCH (08:46)
[2017-09-02] MEDS: FAMCICLOVIR 500 MG TABLET PO SCH (08:46)
[2017-09-02] MEDS: GABAPENTIN 100 MG CAPSULE PO SCH (08:48)
[2017-09-02] MEDS: INSULIN GLARGINE 100unit/ml INJECTION SQ SCH (08:48)
[2017-09-02] MEDS: ASCORBIC ACID 500 MG TABLET PO SCH (08:48)
[2017-09-02] MEDS: FOLIC ACID 1 MG TABLET PO SCH (08:48)
[2017-09-02] MEDS: PrednisoLONE 1% EYE DROPS 5ml OP SCH (08:49)
[2017-09-02] MEDS: EYE RIGHT EYE SCH (08:50)
[2017-09-02] MEDS: BRIMONIDINE/TIMOLOL 0.2%-0.5% EYE DROPS 5ml RIGHT EYE SCH (08:50)
[2017-09-02] MEDS: BRINZOLAMIDE 1% RIGHT EYE SCH (08:50)
[2017-09-02 09:58] VITALS: BP 121/67; PULSE 103; RESP 18; TEMP 98.5; O2SAT 99
[2017-09-02] MEDS: DICLOFENAC 1% TOP GEL 100gm TP SCH ×3 (10:19→12:20)
[2017-09-02] MEDS: VORICONAZOLE 50 MG PO SCH (10:22)
[2017-09-02] MEDS: AMMONIUM LACTATE PO SCH (12:21)
--- NOTE | 2017-09-04 15:15 | Discharge Summary ---
Discharge Information Date of admission: 08/21/17 17:55 Anticipated date of discharge: 09/02/17 Attending Physician: Venkatesh Lopez MD Consults: 08/21/17 18:29 Physician Consult [CONS] Routine Consulting Provider: Emile Dalal Reason For Exam: medical management Ordering Provider has Notified Flight Reservations Manager: Yes 08/21/17 18:33 Dietary Consult [CONS] Routine Comment: Reason For Exam: diabetes mellitus 08/22/17 10:51 Physician Consult [CONS] Routine Consulting Provider: Marta Delgado Reason For Exam: "to help with thoughts" Ordering Provider has Notified Flight Reservations Manager: No 08/23/17 14:42 Doctor [Physician Consult] [CONS] Routine Consulting Provider: Johan Otero Reason For Exam: REVIEW FOR PLACEMENT Ordering Provider has Notified Flight Reservations Manager: Yes 08/28/17 08:45 Doctor [Physician Consult] [CONS] Routine Consulting Provider: Surya Coon Reason For Exam: review for placement Ordering Provider has Notified Flight Reservations Manager: Yes 08/28/17 08:48 Doctor [Physician Consult] [CONS] Routine Consulting Provider: Tha Vences Reason For Exam: review for placement Ordering Provider has Notified Flight Reservations Manager: Yes - Discharge Diagnosis (1) Debility Status: Acute (2) Diabetes mellitus type 1 with manifestations, uncontrolled Status: Chronic (3) Glaucoma Status: Chronic (4) Hypertension Status: Chronic (5) Polyneuropathy Status: Chronic (6) Dermatitis, eczematoid Status: Chronic (7) 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 Generalized debility due to immobility 2. Diabetes mellitus type 1 on insulin therapy 3. Hypertension 4. Polyneuropathy - Laboratory Labs: 09/02/17 06:30 09/02/17 06:31 History of Present Illness HPI: Ms. María Isaac is a pleasant 52-year-old female who recently moved here from [place] and is living with her cousin. She presented to the emergency department after having fallen at home landing on her right knee. Also reports hip and knee pain. Radiographs were negative in the emergency department for acute injury. She was unable to be cared for at home and had significant debility. She also has a history of diabetes mellitus and checks her blood sugars 4 times daily. 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 She reportedly has a history of "3 strokes." She has glaucoma and corneal problems particularly with the left eye. She was evaluated in the emergency department and was noted to have multiple functional deficits and felt to be a good candidate for inpatient rehabilitation. Terra was admitted directly to the IRU from the emergency department as she was not stable to be cared for as an outpatient. Hospital Course This is a general summary of the patient's hospital course. For more details refer to the complete medical record. Ms. Isaac was admitted to acute inpatient rehabilitation on August 21, 2017. She was followed by the hospitalist service as well for her medical problems. With regard to her diabetes she was initially on a sliding insulin scale. She did have some hypoglycemic episodes and for this reason her insulin was adjusted. She remained on her other medications including the voriconazole for her aspergilloma and multiple eye drops for her glaucoma. The patient also complained of bilateral knee pain. Voltaren gel was added and her creatinine was monitored. The Voltaren gel did help significantly. Patient was seen by speech therapy. She was noted to have some dysarthria when she became fatigued. However she was not felt to have any evidence of aphasia. She underwent the [employer] Information Processing Assessment. She was felt to have moderate deficits in immediate memory and time orientation (remote memory) recall of information generally and organization. Much of her auditory processing and retention was related however to her hearing loss. She was also seen by occupational therapy. Eating was independent level of functioning upon admission and dismissal. Grooming was initially independent and subsequently standby assist. Bathing ability was initially moderate assistance and subsequently standby assistance. Upper body dressing was initially standby assistance and ultimately modified independent level. Lower body dressing was initially moderate assistance and ultimately contact-guard assistance. Toileting assist was initially moderate assistance and ultimately standby assist. Toilet transfer assist was initially moderate assistance and ultimately contact-guard assist. Bed/chair/wheelchair transfers were initially performed with minimal assistance and ultimately contact-guard assistance. The patient was seen by physical therapy. Bed/chair/wheelchair transfers were initially moderate assistance of multiply contact-guard assistance. Toilet assistance was initially moderate assistance and ultimately contact-guard assistance. Car transfers were initially contact-guard and ultimately minimum assistance. She was initially able to ambulate a short distance of 20 feet with total assistance of 1 person in the parallel bars with gait belt. She subsequently was able to ambulate 136 feet with contact guard assistance with the front-wheeled walker. Follow-up BUN and creatinine revealed BUN over 80 and creatinine bumped to 2.1. For this reason she was given additional IV fluids and her blood work was reassessed. Lasix was discontinued along with ibuprofen. Follow-up creatinine improved to 1.8. Patient was not felt to be safe to return to her home at this time and would require additional therapy. She was transferred to [facility] on September 01, 2017 for continued therapy. She was stable at the time of dismissal. Recommendations were made for follow-up BMP and CBC on September [address] Skaggs. Hospital course: 08/22/17-Hospitalist consultation Agree with admission to IRU for strengthening and improvement in functional abilities. Check iron studies, B12 and folate for workup of her anemia. Follow blood sugars and adjust insulin as needed. Continue MiraLAX and trial of Reglan for sxs likely due to gastroparesis. Watch for se's to Reglan. Check TSH given her hypothyroidism and constipation. Continue levothyroxine. Continue aspirin and atorvastatin given her history of CVA. Continue Neurontin for peripheral neuropathy. Continue metoprolol for hypertension. Hospital services will continue to follow patient throughout her stay. Patient will need assistance from case management to establish with PCP upon discharge. 08/26/17 Iron and B12 were normal. Stool for occult blood was negative. Blood sugars under reasonable control. BP variable; currently on metoprolol 12.5 mg BID. HR occ tachycardic; could potentially increase to 25 mg BID if this continues. Given diabetes, will start low-dose lisinopril (d/w Dr. Love). Making significant progress with PT -- able to walk 60 feet with therapy. 08/27/17 Iron and B12 were normal. Stool for occult blood was negative. Will assess Ferritin, as that could potentially worsen her peripheral neuropathy. Continue Insulin- BG is fairly stable. Continue Gabapentin for pain control. BP control is improving on addition of MEENAKSHI. Continue beta-eli. Await psychiatry referral- suspect significant underlying mental health DO. Making significant progress with PT -- able to walk 60 feet with therapy. Repeat labs on 08/28. Will potentially need placement. 08/31/17 Hypoglycemia yesterday afternoon with a low of 39. Today, her sugars have all been elevated. She's on her home dose of Lantus. Blood pressure has been lower over the last 2 days as well, with the lowest 80/ 55 this afternoon. Will write hold parameters for lisinopril and BB -- hold if sbp <110. She's also on Lasix per Dr. Lopez, which may be contributing to hypotension. Will reduce dose to 20 mg. Ferritin still pending; last hgb was 9.2. recheck cbc in am. BUN up to 53 on last check -- will recheck in am. Plan is to dc tomorrow; pt reports she will be going to [facility]. 09/01/17 Discharge plans held today due to THAIS. Suspect that her recent hypoglycemia could be effect of reduced kidney function. NS 1L ordered and all nephrotoxic agents have been held. BP still hypotensive. Ferritin level came back markedly elevated; could be acute phase reaction. She had a normal iron level, high B12 level, and normal folate level. Repeat ferritin level. Albumin was 3.4 on last check -- will repeat in am. Check prealbumin. Time spent with patient: greater than 35 minutes Discharge Plan - Med Rec/Dispo Truven Instructions: Hypoglycemia in a Person with Diabetes (GEN), Type 2 Diabetes in Adults (GEN), Fall Prevention for Older Adults (GEN) Prescriptions: New Tramadol [Ultram] 50 mg PO Q4H PRN #40 tab PRN Reason: Pain Eucerin Cream [Eucerin] 1 applicatio TP PRN PRN tube PRN Reason: Dry Skin Metoclopramide [Reglan] 5 mg PO ACHS tab PEG 3350 17gm PACKET [Miralax] 17 gm PO BID PRN packet PRN Reason: Constipation Insulin Glargine,Hum.rec.anlog [Lantus] 16 unit SQ DAILY vial Insulin Aspart [NovoLOG] 4 unit SQ 0730,1130,1700 vial Glucose Oral Gel 40% [Glutose 15] 37.5 gm PO PRN PRN tube PRN Reason: Hypoglycemia Erythromycin Eye Oint [Ilotycin] 1 applicatio LEFT EYE HS tube Acetaminophen [Tylenol] 1,000 mg PO TID tab Diclofenac [Voltaren] 1 applicatio TP QID tube Triamcinolone 0.1% Cream 15 G [Kenalog] 1 applicatio TOP TID PRN tube PRN Reason: Itching Continue Brinzolamide Eye Drops [Azopt] 1 drop BID Atorvastatin [Lipitor] 0.5 tab PO HS Aspirin [Aspirin EC] 81 mg PO DAILY Ammonium Lactate [Lac-Hydrin Five] 113 gm TP DAILY Brimonidine/Timolol Eye Drops [Combigan Eye Drops] 1 drop EACH EYE Q12HR Cholecalciferol (Vitamin D3) [Vitamin D3] 2 cap PO DAILY prednisoLONE acetate [Pred Forte] 1 ml OP DAILY Ascorbic Acid [Vitamin C] 1,000 mg PO DAILY Metoprolol Succinate (XL) [Toprol Xl] 12.5 mg PO BID Levothyroxine Sodium 25 mcg PO DAILY Gabapentin [Neurontin] 100 mg PO DAILY Folic Acid [Folate] 1 tab PO DAILY Famotidine [Pepcid] 1 tab PO BID Voriconazole [Vfend] 250 mg PO Q12HR Dimethicone/Zinc Oxide [Bryanna Protect Cream] See Protocol TID Famciclovir 250 mg PO Q12HR Discontinued Insulin Glargine,Hum.rec.anlog [Lantus Solostar] 16 unit SQ QAM Polyethylene Glycol [Polyox Wsr-301] 17 gm PO BID Insulin Aspart [Novolog Flexpen] See Protocol SQ TID - Disposition 03 To [facility] ([facility]) - Dismissal Complete Discharge Instructions are:: Complete
--- NOTE | 2017-09-04 15:19 | Letter to Referring Physician ---
Dear Dr. Skaggs, This is a brief note to bring you up-to-date on the status of María Isaac and her stay on the acute inpatient rehabilitation unit at [facility]. She had moved here from [place] and presented through the emergency department with severe weakness. She was admitted to inpatient rehabilitation unit at [facility] on August 21, 2017. She was transferred to [facility] in [place] on September 02 and it is requested that you assume her care. While on inpatient rehabilitation, this patient was seen by occupational therapy and physical therapy and improved overall in their functional ability. We also monitored and managed the patient's diabetes mellitus and DJD of knees while on Acute Rehab. Please see a copy of the history and physical examination as well as discharge summary enclosed with this letter for further details. Due to her knee pain she was treated with ibuprofen periodically. We also added on Lasix for a few days due to peripheral edema which is likely dependent in origin. This made her creatinine bump to a high of 2.1. We then repeated the creatinine prior to dismissal after the patient was given IV fluids. It improved to 1.8. A follow-up BMP and CBC are scheduled for September 04 at [facility] with results to your office. I called your office this morning to advise you of this and I left a message. Thank you for allowing us to be involved in this nice patient's care. Please contact me directly should you have any questions regarding their stay on the inpatient rehabilitation unit. Sincerely, Venkatesh Lopez M.D.
== END 2017-09-02 13:10 | DRG 945 ==
LOC: ED 13:12
PROVIDERS: ADMIT Internal Medicine; ATTEND Internal Medicine